=== PATIENT | female | born 1995 | race Two or more races ===

== ENCOUNTER 2024-09-29 08:15 | Outpatient (AMB) | payer OTHER, SELFPAY ==
--- NOTE | 2024-09-29 08:15 | AMB.OBINITIA ---
Vital Signs 09/29/24 08:25 Height 1.57 m Height Method Stated Weight 102.625 kg Weight Measurement Method Standing Scale BMI 41.3 BP 110/73 Blood Pressure Source Automatic Cuff Blood Pressure Location Left Upper Arm Position Sitting Respiration 16 Pulse 98 Pulse Source Monitor Temp 97.8 F Temp Source Oral Pulse Oximetry (%) 96 Oxygen Delivery Method Room Air Allergies/Home Meds Allergies & Medications Allergies NKA* Allergy (Uncoded 09/29/24 08:27) Medication Reconciliation doxylamine 10 mg-pyridoxine (vit B6) 10 mg tablet,delayed release (Diclegis) 1 tab PO BID 30 days #60 tabs 09/29/24 [Rx] folic acid 1 mg tablet 1 mg PO QDAY 09/29/24 [History Confirmed 09/29/24] metformin 1,000 mg tablet 1,000 mg PO QDAY 09/29/24 [History Confirmed 09/29/24] ondansetron 4 mg disintegrating tablet 4 mg PO Q6H PRN nausea and vomiting 30 days #120 tabs 09/29/24 [Rx] Intake Visit Data Collection New Patient or Established: New Patient not seen in past 3 years at [facility] (considered New) Reason for Visit:: CARE Seen by Clinical Staff ONLY (RN/MA): No Data Processor Required: No Do You Feel Safe at Home: Yes Authorities Contacted: N/A PCP or OBGYN visit in last 3 months: No Hx Now: Yes Are you currently on any form of Control: Yes Last menstrual period: 08/05/24 Pain Present Currently: No Pain Scale Used: Adams-Galvin/Numerical Pain scale:: 0 Smoking Status Smoking Status: Never smoker Questionnaires Covid-19 Vaccine Questionnaire Has patient been vacinated for Covid-19 Have you been vacinated for Covid-19: Yes PHQ-9 PHQ-2 Over the last 2 weeks, how often have you been bothered by any of the following problems? 1. Little interest or pleasure in doing things: not at all 2. Feeling down, depressed, or hopeless: not at all Total score: 0 PHQ-9 3. Trouble falling or staying asleep, or sleeping too much: Not at all 4. Feeling tired or having little energy: Not at all 5. Poor appetite or overeating: Not at all 6. Feeling bad about yourself - or that you are a failure or have let yourself or your family down: Not at all 7. Trouble concentrating on things, such as reading the newspaper or watching television: Not at all 8. Moving or speaking so slowly that other people could have noticed? - Or the opposite - being so fidgety or restless that you have been moving around a lot more than usual: not at all 9. Thoughts that you would be better off or of hurting yourself in some way: Not at all Total score: 0 Source: Developed by Drs. Efrain Guerrero, Yoko Roque, Sunil Ibrahim and colleagues, with an educational carrie from [employer]. Depression screen completed yes Social History Living Situation History Marital Status: Lives With: Family Housing: House Tobacco History Smoking Status: Never smoker Second Hand Smoke Exposure: No Alcohol History Alcohol Intake: Never Substance Use History Substance Use: NONE Domestic Abuse History Do You Feel Safe at Home: Yes Past Medical History Past Medical History Have you ever been diagnosed with any of the following: Neurological Problems Cerebrovascular Accident (CVA): No Transient Ischemic Attacks (TIA): No Dementia: No Alzheimer's Disease: No Parkinson's Disease: No Brain Tumor: No Meningitis: No Seizures: No Epilepsy: No Multiple Sclerosis: No Cerebral Palsy: No Amyotrophic Lateral Sclerosis (ALS/Francy Gehrig's): No Guillain-[place] Syndrome: No Spina Bifida: No Paralysis: No Peripheral Neuropathy: No Banks's Palsy: No Subdural Hematoma: No Migraine: No Head Trauma: No Spinal Cord Injury: No Traumatic Brain Injury: No Cardiology Problems Myocardial Infarction: No Cardiac Arrhythmia: No Atrial Fibrillation: No Angina: No Heart Murmur: No Coronary Artery Disease: No Atherosclerotic Heart Disease: No Peripheral Vascular Disease: No Hypercholesterolemia: No Aneurysm: No Congestive Heart Failure: No Congenital Heart Disease: No Valvular Heart Disease: No Rheumatic Fever: No Cardiomyopathy: No Edema: No Pericarditis: No Hypertension: Yes (FATHER) Hypotension: No Respiratory Problems Chronic Obstructive Pulmonary Disease (COPD): No Asthma: No Bronchitis: No Emphysema: No Pneumonia: No Pulmonary Fibrosis: No Tuberculosis: No Pulmonary Embolism: No Pulmonary Edema: No Hx Cough: No Cough: No Wheezing: No Chest Deformities: No Smoking: No Smoking Exposure: No Tobacco Use: No Stomache/Intestinal Problems Liver Cancer: No Hepatitis: No Cirrhosis: No Pancreatic Cancer: No Genital/Urinary Problems Chronic Kidney Disease: No Renal Disease: No Kidney Stones: No Polycystic Kidney Disease: No Neurogenic Bladder: No Inguinal Hernia: No Dialysis: No Prostate Cancer: No Benign Prostatic Hyperplasia: No Reproductive Problems Breast Cancer: No Endometriosis: No Fibroids: No Genital Herpes: No Gonorrhea: No Pelvic Inflammatory Disease: No Polycystic Ovarian Syndrome: No Previous Pregnancies: No Syphilis: No Testicular Cancer: No Uterine Prolapse: No Musculoskeletal Problems Muscular Dystrophy: No Myasthenia Gravis: No Marfan's Syndrome: No Bone Cancer: No Arthritis: No Rheumatoid Arthritis: No Osteoporosis: No Degenerative Disk Disease: No Gout: No Scoliosis: No Carpal Tunnel Syndrome: No Fibromyalgia: No Fractures: No Degenerative Joint Disease: No Osteomyelitis: No Poliovirus: No Head,Eye,Nose,Throat Problems Cataracts: No Glaucoma: No Blind: No Retinal Detachment: No Macular Degeneration: No Chronic Ear Infections: No Deafness: No Eye Prosthesis: No Endocrine Problems Diabetes Mellitus Type 1: No Diabetes Mellitus Type 2: Yes Hypoglycemia: No Isabel's Syndrome: No Dorchester's Disease: No Hyperthyroidism: No Hypothyroidism: No Thyroid Cancer: No Parathyroid Disease: No Pituitary Disease: No Systemic Lupus Erythematosus: No Syndrome of Inappropriate Antidiuretic Hormone: No Adrenal Disease: No Graves' Disease: No Blood Problems Anemia: No Leukemia: No Hemophilia: No Thalassemia: No Sickle Cell Disease: No Clotting Problems: No Psychologic Problems Schizophrenia: No Recreational Drug Use: No Bipolar Disorder: No Depression: No Anxiety: Yes Behavior Problems: No Self-Mutilation: No Attention Deficit Disorder: No Attention Deficit Hyperactivity Disorder: No Depression: No Post Traumatic Stress Disorder: No Eating Disorder: No Other Problems Hospitalization: No Autoimmune Disease: No Down Syndrome: No Autism: No Developmental Delay: No Cosmetic Surgery: No Shingles: No Falls: No Blood Transfusions: No Blood Transfusion Reaction: No Anesthesia Reactions: No Organ Transplant: No Chemotherapy: No Radiation Therapy: No Hyperbaric Therapy: No Cancer: Yes (FATHER/ STOMACH CANCER) Cervical Cancer: No Lung Cancer: No Ovarian Cancer: No Surgical History Angioplasty: No Appendectomy: No Bariatric Surgery: No Breast Surgery: No Cancer Surgery: No Carotid Endarterectomy: No History of Present Illness HPI Narrative The patient is a at 7 weeks and 6 days gestation based on LMP of August 05, with an ARIN of May 12. She reports experiencing nausea and vomiting, with emesis occurring multiple times daily for the past 3 days. The patient was previously prescribed Clomid and folic acid at [facility]. She took her first round of Clomid in July, which resulted in successful conception. The patient is currently continuing folic acid supplementation. OB Initial Visit Menstrual History Menstrual reliability: definite Flow: normal Menstrual regularity: regular Monthly: Yes Age at menarche: 13 On control pills at conception: No Date of positive home test: 09/09/24 OB History : 1 Para: 0 Hx # Pregnancies: 0 Hx Total # of Abortions (Spontaneous & Elective): 0 # of Living Children: 0 Infection History & Risk Evaluation History of STDs: none Genetic Screening & History Genetic Screening/Teratology Counseling - Includes patient, baby's father, or anyone in either family with: 1. Patient's age 35 years or older as of estimated date of delivery: No 2. Thalassemia (Occitan, Tamazight, Mediterranean, or Background); MCV less than 80: No 3. Neural Tube Defect (Meningomyelocele, Spina Bifida, or Anencephaly): No 4. Congenital Heart Defect: No 5. Down Syndrome: No 6. Serge-Sachs (Ashkenazi Anabaptist, Cajun, Portuguese [place]): No 7. Clifton Disease (Ashkenazi Anabaptist): No 8. Familial Dysautonomia (Ashkenazi Anabaptist): No 9. Sickle Cell Disease or Trait (): No 10. Hemophilia or other blood disorders: No 11. Muscular Dystrophy: No 12. Cystic Fibrosis: No 13. Gillett's Chorea: No 14. Mental Retardation/Autism: No 15. Other inherited genetic or chromosomal disorder: No 16. Maternal Metabolic Disorder (EG,TYPE 1 Diabetes, PKU): No 17. Patient or baby's father had a child with defects not listed above: No 18. Recurrent loss or a stillbirth: No 19. Medications (including supplements, vitamins, herbs or otc drugs)/illicit/recreational drugs/alcohol since last menstrual period: No 20. Any other: No Infection History 1. Live with someone with TB or exposed to TB: No 2. Rash or viral illness since last menstrual period: No 3. Hepatitis B,C: No Other (see comments) Source: [employer] Review of Systems Review of Systems Systems Reviewed: All systems reviewed, normal except as documented Exam General Limitations: no limitations General Appearance: alert, in no apparent distress, comfortable, cooperative, healthy appearing, well developed and well groomed Head Head exam: atraumatic, normocephalic and normal inspection Neck Neck exam: Present normal inspection, full ROM and trachea midline Chest Chest inspection: Present normal inspection and symmetric chest wall rise Abdominal Abdominal exam: Present soft and normal bowel sounds Extremities Extremities exam: Present normal inspection and full ROM Back Back exam: Present normal inspection and full ROM Psych Psychiatric exam: Present normal affect and normal mood Skin Skin exam: Present warm, dry, intact and normal color Assessment & Plan Diagnosis / Problem List (1) with history of infertility: Status: Acute Plan: Patient is a 7 weeks 6 days primigravida based on LMP of August 05, with ARIN of May 12. Ultrasound revealed one definite intrauterine gestational sac with visible heartbeat. A second potential sac was noted, requiring further evaluation to confirm possible twin gestation. Patient reports nausea and vomiting multiple times daily for the past 3 days. resulted from first round of Clomid treatment in July. - Formal ultrasound to be performed today to confirm potential twin gestation - Complete initial lab panel and genetic testing on or after October 07 (9 weeks gestation) - Prescribe antiemetics for nausea and vomiting: - Start with high-dose vitamins - Zofran (ondansetron) - Escalate to stronger medications if needed - Continue folic acid supplementation until 15 weeks gestation - Follow-up appointment scheduled for next week to review lab and ultrasound results - Clinician to call patient this afternoon with ultrasound results (2) Twin gestation in first trimester: Status: Acute Additional Plan Follow Up: 1 Week Office Procedures OB Clinic LOC & Office Proc's Nursing/Assessment Patient Status: Initial/New Patient OB Clinic Nursing Assessment: Medication Reconciliation, Update PMH in EMR and Vital Signs OB Clinic Coordination of Care: Complex Care and Chronic Disease 1-5, Consent,records obtained, informed consent, Education Simp Pt/Fam, Lab and Imaging orders and Staff clarify orders Special Needs: Heart tones New Patient Charge New Patient Point Assignment: [id number] New Patient Point Charge: CUTTING TABLE OPERATOR Level 4 ([id number]) Bedside Ultrasounds US Transabdominal >14 weeks at bedside: Yes
[2024-09-29 08:25] VITALS: BP 110/73; PULSE 98; RESP 16; TEMP 36.6; O2SAT 96; BMI 41.3
== END 2024-09-29 08:55 | disposition home or self-care (01) ==
LOC: HODSOBC 08:15
PROVIDERS: PCP Physician Assistant; Referring Provider Physician Assistant; Supervising Provider Obstetrics & Gynecology; Visit Provider Obstetrics & Gynecology
DX: O30.001 Twin pregnancy, unspecified number of placenta and unspecified number of amniotic sacs, first trimester (principal); Z3A.01 Less than 8 weeks gestation of pregnancy; O09.00 Supervision of pregnancy with history of infertility, unspecified trimester
CPT/HCPCS: 76805; 99204; G0463

== ENCOUNTER → 2024-09-29 | Outpatient (CLI) | payer OTHER, SELFPAY ==
--- NOTE | 2024-09-29 10:24 | XR_ITS ---
Examination: age Limited TECHNIQUE: Grayscale sonographic images pelvis, INDICATIONS: diagnosis twin gestations assess viability Exam date and time: September 29, 2024 1035 hours FINDINGS: Uterus 7.3 cm. Baby A CRL 0.8 cm corresponds to 6 weeks 5 day gestational age, cardiac motion 152 BPM Baby B CRL 0.8 cm corresponds to 6 weeks 6 days gestational age, cardiac motion 141 BPM Right ovary 2.8 cm arterial flow small follicles Left ovary 3.3 cm arterial flow small follicles IMPRESSION: Viable twin gestations as above
== END | disposition home or self-care (01) ==
PROVIDERS: PCP Obstetrics & Gynecology; Referring Provider Obstetrics & Gynecology; Visit Provider Obstetrics & Gynecology
DX: O30.001 Twin pregnancy, unspecified number of placenta and unspecified number of amniotic sacs, first trimester (principal); Z3A.01 Less than 8 weeks gestation of pregnancy
CPT/HCPCS: 76801; 76802

== ENCOUNTER 2024-10-09 09:44 | Outpatient (AMB) | payer OTHER, SELFPAY ==
[2024-10-09 09:57] VITALS: BP 107/71; PULSE 100; RESP 18; TEMP 36.7; O2SAT 96; BMI 41.6
--- NOTE | 2024-10-09 09:57 | AMB.OBVISIT ---
Vital Signs 10/09/24 09:57 Height 1.57 m Height Method Stated Weight 102.682 kg Weight Measurement Method Standing Scale BMI 41.6 BP 107/71 Blood Pressure Source Automatic Cuff Blood Pressure Location Left Upper Arm Position Sitting Respiration 18 Pulse 100 Pulse Source Monitor Temp 98.1 F Temp Source Oral Pulse Oximetry (%) 96 Oxygen Delivery Method Room Air Allergies/Home Meds Allergies & Medications Allergies NKA* Allergy (Uncoded 10/09/24 09:58) Medication Reconciliation doxylamine 10 mg-pyridoxine (vit B6) 10 mg tablet,delayed release (Diclegis) 1 tab PO BID 30 days #60 tabs 09/29/24 [Rx Confirmed 10/09/24] folic acid 1 mg tablet 1 mg PO QDAY 09/29/24 [History Confirmed 10/09/24] metformin 1,000 mg tablet 1,000 mg PO QDAY 09/29/24 [History Confirmed 10/09/24] ondansetron 4 mg disintegrating tablet 4 mg PO Q6H PRN nausea and vomiting 30 days #120 tabs 09/29/24 [Rx Confirmed 10/09/24] Intake Visit Data Collection New Patient or Established: Established Patient (seen at [facility] within 3 years) Reason for Visit:: CARE Seen by Clinical Staff ONLY (RN/MA): No Nutrition Associate Required: No Do You Feel Safe at Home: Yes Authorities Contacted: N/A PCP or OBGYN visit in last 3 months: Yes Date of Last PCP or OBGYN visit: 09/29/24 Hx Now: Yes Are you currently on any form of Control: No Last menstrual period: 08/15/24 Pain Present Currently: No Pain Scale Used: Adams-Galvin/Numerical Pain scale:: 0 Smoking Status Smoking Status: Never smoker Questionnaires Covid-19 Vaccine Questionnaire Has patient been vacinated for Covid-19 Have you been vacinated for Covid-19: Yes PHQ-9 PHQ-2 Over the last 2 weeks, how often have you been bothered by any of the following problems? 1. Little interest or pleasure in doing things: not at all 2. Feeling down, depressed, or hopeless: not at all Total score: 0 PHQ-9 3. Trouble falling or staying asleep, or sleeping too much: Not at all 4. Feeling tired or having little energy: Not at all 5. Poor appetite or overeating: Not at all 6. Feeling bad about yourself - or that you are a failure or have let yourself or your family down: Not at all 7. Trouble concentrating on things, such as reading the newspaper or watching television: Not at all 8. Moving or speaking so slowly that other people could have noticed? - Or the opposite - being so fidgety or restless that you have been moving around a lot more than usual: not at all 9. Thoughts that you would be better off or of hurting yourself in some way: Not at all Total score: 0 Source: Developed by Drs. Efrain Guerrero, Yoko Roque, Sunil Ibrahim and colleagues, with an educational carrie from [employer]. Depression screen completed yes Social History Living Situation History Marital Status: Lives With: Family Housing: House Tobacco History Smoking Status: Never smoker Second Hand Smoke Exposure: No Alcohol History Alcohol Intake: Never Substance Use History Substance Use: NONE Domestic Abuse History Do You Feel Safe at Home: Yes Past Medical History Past Medical History Have you ever been diagnosed with any of the following: Neurological Problems Cerebrovascular Accident (CVA): No Transient Ischemic Attacks (TIA): No Dementia: No Alzheimer's Disease: No Parkinson's Disease: No Brain Tumor: No Meningitis: No Seizures: No Epilepsy: No Multiple Sclerosis: No Cerebral Palsy: No Amyotrophic Lateral Sclerosis (ALS/Francy Gehrig's): No Guillain-[place] Syndrome: No Spina Bifida: No Paralysis: No Peripheral Neuropathy: No Banks's Palsy: No Subdural Hematoma: No Migraine: No Head Trauma: No Spinal Cord Injury: No Traumatic Brain Injury: No Cardiology Problems Myocardial Infarction: No Cardiac Arrhythmia: No Atrial Fibrillation: No Angina: No Heart Murmur: No Coronary Artery Disease: No Atherosclerotic Heart Disease: No Peripheral Vascular Disease: No Hypercholesterolemia: No Aneurysm: No Congestive Heart Failure: No Congenital Heart Disease: No Valvular Heart Disease: No Rheumatic Fever: No Cardiomyopathy: No Edema: No Pericarditis: No Hypertension: Yes (FATHER) Hypotension: No Respiratory Problems Chronic Obstructive Pulmonary Disease (COPD): No Asthma: No Bronchitis: No Emphysema: No Pneumonia: No Pulmonary Fibrosis: No Tuberculosis: No Pulmonary Embolism: No Pulmonary Edema: No Hx Cough: No Cough: No Wheezing: No Chest Deformities: No Smoking: No Smoking Exposure: No Tobacco Use: No Stomache/Intestinal Problems Liver Cancer: No Hepatitis: No Cirrhosis: No Pancreatic Cancer: No Genital/Urinary Problems Renal Disease: No Kidney Stones: No Polycystic Kidney Disease: No Neurogenic Bladder: No Inguinal Hernia: No Dialysis: No Prostate Cancer: No Benign Prostatic Hyperplasia: No Reproductive Problems Breast Cancer: No Endometriosis: No Fibroids: No Genital Herpes: No Gonorrhea: No Pelvic Inflammatory Disease: No Polycystic Ovarian Syndrome: No Previous Pregnancies: No Syphilis: No Testicular Cancer: No Uterine Prolapse: No Musculoskeletal Problems Muscular Dystrophy: No Myasthenia Gravis: No Marfan's Syndrome: No Bone Cancer: No Arthritis: No Rheumatoid Arthritis: No Osteoporosis: No Degenerative Disk Disease: No Gout: No Scoliosis: No Carpal Tunnel Syndrome: No Fibromyalgia: No Fractures: No Degenerative Joint Disease: No Osteomyelitis: No Poliovirus: No Head,Eye,Nose,Throat Problems Cataracts: No Glaucoma: No Blind: No Retinal Detachment: No Macular Degeneration: No Chronic Ear Infections: No Deafness: No Eye Prosthesis: No Endocrine Problems Diabetes Mellitus Type 1: No Diabetes Mellitus Type 2: Yes Hypoglycemia: No Carville's Syndrome: No Jonel's Disease: No Hyperthyroidism: No Hypothyroidism: No Thyroid Cancer: No Parathyroid Disease: No Pituitary Disease: No Systemic Lupus Erythematosus: No Syndrome of Inappropriate Antidiuretic Hormone: No Adrenal Disease: No Graves' Disease: No Blood Problems Anemia: No Leukemia: No Hemophilia: No Thalassemia: No Sickle Cell Disease: No Clotting Problems: No Psychologic Problems Schizophrenia: No Recreational Drug Use: No Bipolar Disorder: No Depression: No Anxiety: Yes Behavior Problems: No Self-Mutilation: No Attention Deficit Disorder: No Attention Deficit Hyperactivity Disorder: No Depression: No Post Traumatic Stress Disorder: No Eating Disorder: No Other Problems Hospitalization: No Down Syndrome: No Autism: No Developmental Delay: No Cosmetic Surgery: No Shingles: No Falls: No Blood Transfusions: No Blood Transfusion Reaction: No Anesthesia Reactions: No Organ Transplant: No Chemotherapy: No Radiation Therapy: No Hyperbaric Therapy: No Hepatitis A: No Hepatitis B: No Hepatitis C: No Communicable Disease: No Cancer: Yes (FATHER/ STOMACH CANCER) Cervical Cancer: No Lung Cancer: No Ovarian Cancer: No Surgical History Angioplasty: No Appendectomy: No Bariatric Surgery: No Breast Surgery: No Cancer Surgery: No Carotid Endarterectomy: No Cholecystectomy: No Colectomy: No Colostomy: No Coronary Artery Bypass Graft: No Valve Replacement: No Herniorrhaphy: No Total Hip Replacement: No Total Knee Replacement: No Hysterectomy: No Pacemaker: No Sinus Surgery: No Splenectomy: No TAHBSO-Total Abdominal Hysterectomy: No Thyroidectomy: No Ureter Stent: No History of Present Illness HPI Narrative Patient is with twins. An ultrasound performed on 09-29 at 6 weeks and 5 days gestation confirmed the presence of two gestational sacs. The ultrasound showed good heartbeats and measurements for both fetuses. One fetus measured at 6 weeks 5 days, while the other measured at 6 weeks 6 days. The patient is currently 8 weeks and 1 day gestation, with an estimated due date of May 20. The type of twins (identical or fraternal) has not yet been determined. Review of Systems Review of Systems Systems Reviewed: All systems reviewed, normal except as documented Visit ARIN Calculator Estimated Delivery Date Method Current WG Current Estimate 05/12/25 LMP (Certain) 10w 0d Exam General Limitations: no limitations General Appearance: alert, in no apparent distress, comfortable, cooperative, healthy appearing, well developed and well groomed Head Head exam: atraumatic, normocephalic and normal inspection Neck Neck exam: Present normal inspection, full ROM and trachea midline Chest Chest inspection: Present normal inspection and symmetric chest wall rise Abdominal Abdominal exam: Present soft and normal bowel sounds Extremities Extremities exam: Present normal inspection and full ROM Back Back exam: Present normal inspection and full ROM Psych Psychiatric exam: Present normal affect and normal mood Skin Skin exam: Present warm, dry, intact and normal color Assessment & Plan Diagnosis / Problem List (1) Twin gestation in first trimester: Status: Acute Plan: Twin Patient is confirmed to have a twin . Ultrasound on 09-29 showed two gestational sacs with fetuses measuring 6 weeks 5 days and 6 weeks 6 days, respectively. Both fetuses had good heartbeats and measurements. Current gestational age is 8 weeks 1 day based on the ultrasound dating. The type of twins (identical vs fraternal) cannot be determined until approximately 12 weeks gestation. Due date is calculated as May 20. - Schedule 12-14 week ultrasound with Maternal- Medicine (MFM) specialist in [place] - Obtain authorization for MFM referral - Perform Non-Invasive Testing (NIPT) at 9 weeks gestation or later - Complete initial panel lab work - Provide patient with copies of ultrasound images - Follow-up with MFM for 20-week ultrasound (2) with history of infertility: Status: Acute Office Procedures OB Clinic LOC & Office Proc's Nursing/Assessment Patient Status: Established Patient OB Clinic Nursing Assessment: Medication Reconciliation, Update PMH in EMR and Vital Signs OB Clinic Coordination of Care: Complex Care and Chronic Disease 1-5, Consent,records obtained, informed consent, Education Simp Pt/Fam, Lab and Imaging orders, Results/Orders obtained and Staff clarify orders Special Needs: Heart tones Established Patient Charge Established Patient Point Assignment: 135 Established Patient Point Charge: EP Level 4 ([id number])
== END 2024-10-09 10:13 | disposition home or self-care (01) ==
LOC: HODSOBC 09:44
PROVIDERS: PCP Obstetrics & Gynecology; Referring Provider Obstetrics & Gynecology; Supervising Provider Obstetrics & Gynecology; Visit Provider Obstetrics & Gynecology
DX: O30.001 Twin pregnancy, unspecified number of placenta and unspecified number of amniotic sacs, first trimester (principal); O09.00 Supervision of pregnancy with history of infertility, unspecified trimester; Z3A.08 8 weeks gestation of pregnancy
CPT/HCPCS: 99214; G0463

== ENCOUNTER 2024-10-27 08:39 | Outpatient (AMB) | payer OTHER, SELFPAY ==
--- NOTE | 2024-10-27 08:53 | AMB.GYNCLNOT ---
Vital Signs 10/27/24 08:54 Height 1.57 m Height Method Stated Weight 102.739 kg Weight Measurement Method Standing Scale BMI 41.6 BP 119/75 Blood Pressure Source Automatic Cuff Blood Pressure Location Right Lower Arm Position Sitting Respiration 18 Pulse 99 Pulse Source Monitor Temp 97.9 F Temp Source Oral Pulse Oximetry (%) 97 Oxygen Delivery Method Room Air Allergies/Home Meds Allergies & Medications Allergies NKA* Allergy (Uncoded 10/27/24 08:55) Medication Reconciliation doxylamine 10 mg-pyridoxine (vit B6) 10 mg tablet,delayed release (Diclegis) 1 tab PO BID 30 days #60 tabs 09/29/24 [Rx Confirmed 10/27/24] folic acid 1 mg tablet 1 mg PO QDAY 09/29/24 [History Confirmed 10/27/24] metformin 1,000 mg tablet 1,000 mg PO QDAY 09/29/24 [History Confirmed 10/27/24] ondansetron 4 mg disintegrating tablet 4 mg PO Q6H PRN nausea and vomiting 30 days #120 tabs 09/29/24 [Rx Confirmed 10/27/24] Intake Visit Data Collection New Patient or Established: Established Patient (seen at [facility] within 3 years) Reason for Visit:: EMERGENCY ROOM FOLLOW UP Seen by Clinical Staff ONLY (RN/MA): No Cooling Room Attendant Required: No Do You Feel Safe at Home: Yes Authorities Contacted: N/A PCP or OBGYN visit in last 3 months: Yes Date of Last PCP or OBGYN visit: 10/09/24 Hx Now: Yes Are you currently on any form of Control: Yes Pain Present Currently: No Pain Scale Used: Adams-Galvin/Numerical Pain scale:: 0 Smoking Status 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 1. Little interest or pleasure in doing things: not at all 2. Feeling down, depressed, or hopeless: not at all Total score: 0 PHQ-9 3. Trouble falling or staying asleep, or sleeping too much: Not at all 4. Feeling tired or having little energy: Not at all 5. Poor appetite or overeating: Not at all 6. Feeling bad about yourself - or that you are a failure or have let yourself or your family down: Not at all 7. Trouble concentrating on things, such as reading the newspaper or watching television: Not at all 8. Moving or speaking so slowly that other people could have noticed? - Or the opposite - being so fidgety or restless that you have been moving around a lot more than usual: not at all 9. Thoughts that you would be better off or of hurting yourself in some way: Not at all Total score: 0 Source: Developed by Drs. Efrain Guerrero, Yoko Roque, Sunil Ibrahim and colleagues, with an educational carrie from [employer]. Depression screen completed yes Social History Living Situation History Lives With: Family Housing: House Tobacco History Smoking Status: Never smoker Second Hand Smoke Exposure: No Alcohol History Alcohol Intake: Never Substance Use History Substance Use: NONE Domestic Abuse History Do You Feel Safe at Home: Yes Past Medical History Past Medical History Have you ever been diagnosed with any of the following: Neurological Problems Cerebrovascular Accident (CVA): No Transient Ischemic Attacks (TIA): No Dementia: No Alzheimer's Disease: No Parkinson's Disease: No Brain Tumor: No Meningitis: No Seizures: No Epilepsy: No Multiple Sclerosis: No Cerebral Palsy: No Amyotrophic Lateral Sclerosis (ALS/Francy Gehrig's): No Guillain-Livingston Syndrome: No Spina Bifida: No Paralysis: No Peripheral Neuropathy: No Banks's Palsy: No Subdural Hematoma: No Migraine: No Head Trauma: No Spinal Cord Injury: No Traumatic Brain Injury: No Cardiology Problems Myocardial Infarction: No Cardiac Arrhythmia: No Atrial Fibrillation: No Angina: No Heart Murmur: No Coronary Artery Disease: No Atherosclerotic Heart Disease: No Peripheral Vascular Disease: No Hypercholesterolemia: No Aneurysm: No Congestive Heart Failure: No Congenital Heart Disease: No Valvular Heart Disease: No Rheumatic Fever: No Cardiomyopathy: No Edema: No Pericarditis: No Hypertension: Yes (FATHER) Hypotension: No Respiratory Problems Chronic Obstructive Pulmonary Disease (COPD): No Asthma: No Bronchitis: No Emphysema: No Pneumonia: No Pulmonary Fibrosis: No Tuberculosis: No Pulmonary Embolism: No Pulmonary Edema: No Hx Cough: No Cough: No Wheezing: No Chest Deformities: No Smoking: No Smoking Exposure: No Tobacco Use: No Stomache/Intestinal Problems Liver Cancer: No Hepatitis: No Cirrhosis: No Pancreatic Cancer: No Genital/Urinary Problems Renal Disease: No Kidney Stones: No Polycystic Kidney Disease: No Neurogenic Bladder: No Inguinal Hernia: No Dialysis: No Reproductive Problems Breast Cancer: No Endometriosis: No Fibroids: No Genital Herpes: No Gonorrhea: No Pelvic Inflammatory Disease: No Polycystic Ovarian Syndrome: No Previous Pregnancies: No Syphilis: No Uterine Prolapse: No Musculoskeletal Problems Muscular Dystrophy: No Myasthenia Gravis: No Marfan's Syndrome: No Bone Cancer: No Arthritis: No Rheumatoid Arthritis: No Osteoporosis: No Degenerative Disk Disease: No Gout: No Scoliosis: No Carpal Tunnel Syndrome: No Fibromyalgia: No Fractures: No Degenerative Joint Disease: No Osteomyelitis: No Poliovirus: No Head,Eye,Nose,Throat Problems Cataracts: No Glaucoma: No Blind: No Retinal Detachment: No Macular Degeneration: No Chronic Ear Infections: No Deafness: No Eye Prosthesis: No Endocrine Problems Diabetes Mellitus Type 1: No Diabetes Mellitus Type 2: Yes Hypoglycemia: No [place]'s Syndrome: No Edwards's Disease: No Hyperthyroidism: No Hypothyroidism: No Thyroid Cancer: No Parathyroid Disease: No Pituitary Disease: No Systemic Lupus Erythematosus: No Syndrome of Inappropriate Antidiuretic Hormone: No Adrenal Disease: No Graves' Disease: No Blood Problems Anemia: No Leukemia: No Hemophilia: No Thalassemia: No Sickle Cell Disease: No Clotting Problems: No Psychologic Problems Schizophrenia: No Recreational Drug Use: No Bipolar Disorder: No Depression: No Anxiety: Yes Behavior Problems: No Self-Mutilation: No Attention Deficit Disorder: No Attention Deficit Hyperactivity Disorder: No Depression: No Post Traumatic Stress Disorder: No Eating Disorder: No Other Problems Hospitalization: No Down Syndrome: No Autism: No Developmental Delay: No Cosmetic Surgery: No Shingles: No Falls: No Blood Transfusions: No Blood Transfusion Reaction: No Anesthesia Reactions: No Organ Transplant: No Chemotherapy: No Radiation Therapy: No Hyperbaric Therapy: No Hepatitis A: No Hepatitis B: No Hepatitis C: No Communicable Disease: No Cancer: Yes (FATHER/ STOMACH CANCER) Cervical Cancer: No Lung Cancer: No Ovarian Cancer: No Surgical History Angioplasty: No Appendectomy: No Bariatric Surgery: No Breast Surgery: No Cancer Surgery: No Carotid Endarterectomy: No Cholecystectomy: No Colectomy: No Colostomy: No Coronary Artery Bypass Graft: No Valve Replacement: No Herniorrhaphy: No Total Hip Replacement: No Total Knee Replacement: No Hysterectomy: No Pacemaker: No Sinus Surgery: No Splenectomy: No TAHBSO-Total Abdominal Hysterectomy: No Thyroidectomy: No Ureter Stent: No History of Present Illness HPI Narrative patient with twins presents for follow-up after an emergency room visit due to vaginal bleeding. Last , she experienced bright red vaginal bleeding that was constant but not heavy. She went to the ER where tests, including an ultrasound, blood tests, and urine analysis, were performed. The ultrasound showed a heart rate of 174 bpm. The bleeding continued on Sunday but changed to brown in color, with two episodes of blood clots. On Sunday, she had one instance of brown bleeding, after which the bleeding stopped. The patient denies any precipitating factors such as strenuous exercise, heavy lifting, or excessive fatigue. She reports vomiting once yesterday. The patient is currently taking vitamins as prescribed. She has an upcoming appointment with a specialist at [facility] next Sunday for a detailed ultrasound. She has been advised to follow precautions for two weeks from the onset of bleeding, including pelvic rest (no sexual intercourse), avoiding lifting more than 20 pounds, limiting car travel to no more than an hour, and avoiding activities such as extensive stair climbing, hiking, or picnics. The patient reports having to go to work after the appointment. Diagnostic Test Results and Labs: - ER visit (last ): - Ultrasound: heart rate 174 bpm - Blood tests: Performed, results not specified - Urine test: Performed, results not specified - Today (SunOct 27 2024): - Ultrasound: - Twin confirmed - Baby A heart rate: 175 bpm - Baby B heart rate: 170 bpm - No visible blood clots - Placenta: No visible abnormalities - Possible resolving subchorionic hemorrhage noted Review of Systems Review of Systems Systems Reviewed: All systems reviewed, normal except as documented Exam General Limitations: no limitations General Appearance: alert, in no apparent distress, comfortable, cooperative, healthy appearing, well developed and well groomed Head Head exam: atraumatic, normocephalic and normal inspection Chest Chest inspection: Present normal inspection and symmetric chest wall rise Abdominal Abdominal exam: Present soft and normal bowel sounds Psych Psychiatric exam: Present normal affect and normal mood Skin Skin exam: Present warm, dry, intact and normal color Assessment & Plan Diagnosis / Problem List (1) Twin gestation in first trimester: Status: Acute (2) with history of infertility: Status: Acute Plan - Pelvic rest for 2 weeks from the bleeding episode. - Avoid lifting more than 20 pounds. - Limit car travel to less than 1 hour at a time. - Avoid prolonged crouching, climbing stairs, hiking, and picnics for 2 weeks. - Continue vitamins. - Attend scheduled appointment with [facility] specialist next Sunday for detailed ultrasound. - Follow up on results of previously ordered genetic testing. Office Procedures OB Clinic LOC & Office Proc's Nursing/Assessment Patient Status: Established Patient OB Clinic Nursing Assessment: Medication Reconciliation, Update PMH in EMR and Vital Signs OB Clinic Coordination of Care: Complex Care and Chronic Disease 1-5, Consent,records obtained, informed consent, Education Simp Pt/Fam, Lab and Imaging orders, Results/Orders obtained and Staff clarify orders Established Patient Charge Established Patient Point Assignment: 105 Established Patient Point Charge: EP Level 3 (80-115)
[2024-10-27 08:54] VITALS: BP 119/75; PULSE 99; RESP 18; TEMP 36.6; O2SAT 97; BMI 41.6
== END 2024-10-27 09:31 | disposition home or self-care (01) ==
LOC: HODSOBC 08:39
PROVIDERS: Supervising Provider Obstetrics & Gynecology; Visit Provider Obstetrics & Gynecology
DX: O09.00 Supervision of pregnancy with history of infertility, unspecified trimester (principal); Z3A.00 Weeks of gestation of pregnancy not specified; O30.009 Twin pregnancy, unspecified number of placenta and unspecified number of amniotic sacs, unspecified trimester
CPT/HCPCS: 99213; G0463

== ENCOUNTER 2024-11-19 11:17 | Outpatient (AMB) | payer OTHER, SELFPAY ==
--- NOTE | 2024-11-19 11:34 | OBCLNT_ITS ---
Vital Signs 11/19/24 11:41 Height 1.57 m Height Method Stated Weight 104.893 kg Weight Measurement Method Standing Scale BMI 42.5 BP 125/83 Blood Pressure Source Automatic Cuff Blood Pressure Location Left Upper Arm Position Sitting Respiration 20 Pulse 109 H Pulse Source Monitor Temp 98 F Temp Source Oral Pulse Oximetry (%) 96 Oxygen Delivery Method Room Air Allergies/Home Meds Allergies & Medications Allergies NKA* Allergy (Uncoded 11/19/24 11:42) Medication Reconciliation doxylamine 10 mg-pyridoxine (vit B6) 10 mg tablet,delayed release (Diclegis) 1 tab PO BID 30 days #60 tabs 09/29/24 [Rx Confirmed 11/19/24] folic acid 1 mg tablet 1 mg PO QDAY 09/29/24 [History Confirmed 11/19/24] metformin 1,000 mg tablet 1,000 mg PO QDAY 09/29/24 [History Confirmed 11/19/24] ondansetron 4 mg disintegrating tablet 4 mg PO Q6H PRN nausea and vomiting 30 days #120 tabs 09/29/24 [Rx Confirmed 11/19/24] Intake Visit Data Collection New Patient or Established: Established Patient (seen at [facility] within 3 years) Reason for Visit:: CARE Seen by Clinical Staff ONLY (RN/MA): No Senior Information Security Analyst Required: No Do You Feel Safe at Home: Yes Authorities Contacted: N/A PCP or OBGYN visit in last 3 months: Yes Hx Now: Yes Are you currently on any form of Control: No Pain Present Currently: No Pain Scale Used: Adams-Galvin/Numerical Pain scale:: 0 Smoking Status Smoking Status: Never smoker Questionnaires Covid-19 Vaccine Questionnaire Has patient been vacinated for Covid-19 Have you been vacinated for Covid-19: Yes PHQ-9 PHQ-2 Over the last 2 weeks, how often have you been bothered by any of the following problems? 1. Little interest or pleasure in doing things: not at all 2. Feeling down, depressed, or hopeless: not at all Total score: 0 PHQ-9 3. Trouble falling or staying asleep, or sleeping too much: Not at all 4. Feeling tired or having little energy: Not at all 5. Poor appetite or overeating: Not at all 6. Feeling bad about yourself - or that you are a failure or have let yourself or your family down: Not at all 7. Trouble concentrating on things, such as reading the newspaper or watching television: Not at all 8. Moving or speaking so slowly that other people could have noticed? - Or the opposite - being so fidgety or restless that you have been moving around a lot more than usual: not at all 9. Thoughts that you would be better off or of hurting yourself in some way: Not at all Total score: 0 Source: Developed by Drs. Efrain Guerrero, Yoko Roque, Sunil Ibrahim and colleagues, with an educational carrie from [employer]. Depression screen completed yes Social History Living Situation History Lives With: Family Housing: House Tobacco History Smoking Status: Never smoker Second Hand Smoke Exposure: No Alcohol History Alcohol Intake: Never Substance Use History Substance Use: NONE Domestic Abuse History Do You Feel Safe at Home: Yes Past Medical History Past Medical History Have you ever been diagnosed with any of the following: Neurological Problems Cerebrovascular Accident (CVA): No Transient Ischemic Attacks (TIA): No Dementia: No Alzheimer's Disease: No Parkinson's Disease: No Brain Tumor: No Meningitis: No Seizures: No Epilepsy: No Multiple Sclerosis: No Cerebral Palsy: No Amyotrophic Lateral Sclerosis (ALS/Francy Gehrig's): No Guillain-Swink Syndrome: No Spina Bifida: No Paralysis: No Peripheral Neuropathy: No Banks's Palsy: No Subdural Hematoma: No Migraine: No Head Trauma: No Spinal Cord Injury: No Traumatic Brain Injury: No Cardiology Problems Myocardial Infarction: No Cardiac Arrhythmia: No Atrial Fibrillation: No Angina: No Heart Murmur: No Coronary Artery Disease: No Atherosclerotic Heart Disease: No Peripheral Vascular Disease: No Hypercholesterolemia: No Aneurysm: No Congestive Heart Failure: No Congenital Heart Disease: No Valvular Heart Disease: No Rheumatic Fever: No Cardiomyopathy: No Edema: No Pericarditis: No Hypertension: Yes (FATHER) Hypotension: No Respiratory Problems Chronic Obstructive Pulmonary Disease (COPD): No Asthma: No Bronchitis: No Emphysema: No Pneumonia: No Pulmonary Fibrosis: No Tuberculosis: No Pulmonary Embolism: No Pulmonary Edema: No Hx Cough: No Cough: No Wheezing: No Chest Deformities: No Smoking: No Smoking Exposure: No Tobacco Use: No Stomache/Intestinal Problems Liver Cancer: No Hepatitis: No Cirrhosis: No Pancreatic Cancer: No Genital/Urinary Problems Renal Disease: No Kidney Stones: No Polycystic Kidney Disease: No Neurogenic Bladder: No Inguinal Hernia: No Dialysis: No Reproductive Problems Breast Cancer: No Endometriosis: No Fibroids: No Genital Herpes: No Gonorrhea: No Pelvic Inflammatory Disease: No Polycystic Ovarian Syndrome: No Previous Pregnancies: No Syphilis: No Uterine Prolapse: No Musculoskeletal Problems Muscular Dystrophy: No Myasthenia Gravis: No Marfan's Syndrome: No Bone Cancer: No Arthritis: No Rheumatoid Arthritis: No Osteoporosis: No Degenerative Disk Disease: No Gout: No Scoliosis: No Carpal Tunnel Syndrome: No Fibromyalgia: No Fractures: No Degenerative Joint Disease: No Osteomyelitis: No Poliovirus: No Head,Eye,Nose,Throat Problems Cataracts: No Glaucoma: No Blind: No Retinal Detachment: No Macular Degeneration: No Chronic Ear Infections: No Deafness: No Eye Prosthesis: No Endocrine Problems Diabetes Mellitus Type 1: No Diabetes Mellitus Type 2: Yes Hypoglycemia: No [place]'s Syndrome: No [place]'s Disease: No Hyperthyroidism: No Hypothyroidism: No Thyroid Cancer: No Parathyroid Disease: No Pituitary Disease: No Systemic Lupus Erythematosus: No Syndrome of Inappropriate Antidiuretic Hormone: No Adrenal Disease: No Graves' Disease: No Blood Problems Anemia: No Leukemia: No Hemophilia: No Thalassemia: No Sickle Cell Disease: No Clotting Problems: No Psychologic Problems Schizophrenia: No Recreational Drug Use: No Bipolar Disorder: No Depression: No Anxiety: Yes Behavior Problems: No Self-Mutilation: No Attention Deficit Disorder: No Attention Deficit Hyperactivity Disorder: No Depression: No Post Traumatic Stress Disorder: No Eating Disorder: No Other Problems Hospitalization: No Down Syndrome: No Autism: No Developmental Delay: No Cosmetic Surgery: No Shingles: No Falls: No Blood Transfusions: No Blood Transfusion Reaction: No Anesthesia Reactions: No Organ Transplant: No Chemotherapy: No Radiation Therapy: No Hyperbaric Therapy: No Hepatitis A: No Hepatitis B: No Hepatitis C: No Communicable Disease: No Cancer: Yes (FATHER/ STOMACH CANCER) Cervical Cancer: No Lung Cancer: No Ovarian Cancer: No Surgical History Angioplasty: No Appendectomy: No Bariatric Surgery: No Breast Surgery: No Cancer Surgery: No Carotid Endarterectomy: No Cholecystectomy: No Colectomy: No Colostomy: No Coronary Artery Bypass Graft: No Valve Replacement: No Herniorrhaphy: No Total Hip Replacement: No Total Knee Replacement: No Hysterectomy: No Pacemaker: No Sinus Surgery: No Splenectomy: No TAHBSO-Total Abdominal Hysterectomy: No Thyroidectomy: No Ureter Stent: No History of Present Illness HPI Narrative - Lea Khalil is a 29-year-old with twin at 15 weeks and 1 day gestation, presenting for care. She has a history of infertility treated with Clomid for the current . - Patient reports intermittent vaginal bleeding - Describes it as comes and goes - Most recent episode occurred after climbing 5 flights of stairs at work due to a broken elevator - No mention of quantity, color, or associated pain - Denies current cramping or spotting - Recent A1c result of 5.6% (patient initially referred to it as hemoglobin) - Patient mentions having had a recent appointment with a specialist (presumably maternal- medicine) - Details of this appointment were not discussed - No reported changes in overall health status or daily functioning - No mention of other -related symptoms or concerns No contractions/ LOF/VB, reports good FM No DEVLIN/VC/RUQ/Epig pain Care OB Visit Log OB Flowsheet Initial Weight: Not Recorded Date -?-?-?-?-?-?-?-?-?-?-?-?- EGA Weight Edema CTX Effacement BP Fundal ht Pres Dilation Effacement Station Visit Note Alb Glu FHR Mov 11/19/24 -?-?-?-?-?-?-?-?-?-?-?-?- 15w 1d 104.893 kg 125/83 Annette Khalil, 29-year-old with a twin at 15w1d, presents for routine care. History of infertility treated with Clomid. Reports intermittent vaginal bleeding, most recently after climbing five flights of stairs at work; denies current bleeding or cramping. No contractions, LOF, or VB. Reports good movement. A1c noted at 5.6%. heart tones auscultated at 149 and 158 bpm. No current complaints otherwise. Men tions recent specialist visit; details unavailable. Plan: Follow up in 4 weeks Schedule glucose tolerance test at 20?21 weeks due to twin Provide new genetic testing forms (prior results inadequate) Contact [facility]?s office to request fanta zhanga report Recommend rest during bleeding episodes Advise patient to park at ground level o r behind buildings to avoid stairs Continue routine education and precautions for twin gestation ARIN Calculator Estimated Delivery Date Method Current WG Current Estimate 05/12/25 LMP (Certain) 15w 2d Exam General General Appearance: alert, in no apparent distress and healthy appearing Head Head exam: atraumatic Neck Neck exam: Present normal inspection and trachea midline Chest Chest inspection: Present normal inspection and symmetric chest wall rise External exam: Present normal external exam; Absent tenderness Neuro Neurological exam: Present oriented X3 Psych Psychiatric exam: Present normal affect and normal mood Assessment & Plan Diagnosis / Problem List (1) Twin gestation in first trimester: Status: Acute (2) with history of infertility: Status: Acute Plan Problem List - Twin - Intermittent vaginal bleeding - History of infertility - Gestational diabetes mellitus Assessment - Twin at 15 weeks and 1 day gestation - History of infertility treated with Clomid for current - Intermittent vaginal bleeding - Hemoglobin A1c of 5.6% - heart rates: 149 bpm and 158 bpm Plan - Follow up in 4 weeks - Schedule glucose tolerance test at 20-21 weeks for early diabetes screening due to twin - Provide forms for genetic testing due to previous inadequate results - Call Chiquis's office to obtain placenta report - Advise rest when bleeding occurs - Recommend parking on street level or in parking lots behind buildings to avoid stairs when possible Educated the patient on labor signs, including regular contractions, lower back pain, and changes in vaginal discharge. Advised avoiding heavy lifting and getting adequate rest. Instructed to contact the office immediately if any signs occur. Discussed the importance of a balanced diet rich in folic acid, iron, and calcium, and provided a list of recommended and to-avoid foods. Emphasized avoiding high-sugar foods to reduce gestational diabetes risk. Encouraged hydration and frequent, small meals for energy.. Office Procedures OB Clinic LOC & Office Proc's Nursing/Assessment Patient Status: Established Patient OB Clinic Nursing Assessment: Medication Reconciliation, Update PMH in EMR and Vital Signs OB Clinic Coordination of Care: Complex Care and Chronic Disease 1-5, Consent,records obtained, informed consent, Education Simp Pt/Fam, Lab and Imaging orders and Staff clarify orders Special Needs: Heart tones Miscellaneous Interventions: Blood/Urine Collection Established Patient Charge Established Patient Point Assignment: 160 Established Patient Point Charge: EP Level 5 (160-above) Bedside Ultrasounds US Transabdominal <14 weeks at bedside: Yes
[2024-11-19 11:41] VITALS: BP 125/83; PULSE 109; RESP 20; TEMP 36.6; O2SAT 96; BMI 42.5
== END 2024-11-19 11:49 | disposition home or self-care (01) ==
LOC: HODSOBC 11:17
PROVIDERS: PCP Obstetrics & Gynecology; Referring Provider Obstetrics & Gynecology; Supervising Provider Obstetrics & Gynecology; Visit Provider Obstetrics & Gynecology
DX: O09.892 Supervision of other high risk pregnancies, second trimester (principal); Z3A.15 15 weeks gestation of pregnancy; O30.002 Twin pregnancy, unspecified number of placenta and unspecified number of amniotic sacs, second trimester; O09.02 Supervision of pregnancy with history of infertility, second trimester
CPT/HCPCS: 76801; 99215; G0463

== ENCOUNTER 2025-01-02 08:37 | Outpatient (AMB) | payer OTHER, SELFPAY ==
--- NOTE | 2025-01-02 08:45 | AMB.OBVISIT ---
Vital Signs 01/02/25 08:46 Height 1.57 m Height Method Measured Weight 108.919 kg Weight Measurement Method Standing Scale BMI 44.1 BP 119/76 Blood Pressure Source Automatic Cuff Blood Pressure Location Right Upper Arm Position Sitting Respiration 17 Pulse 112 H Pulse Source Monitor Temp 97.9 F Temp Source Temporal Artery Scan Pulse Oximetry (%) 95 Oxygen Delivery Method Room Air Allergies/Home Meds Allergies & Medications Allergies NKA* Allergy (Uncoded 01/27/25 15:45) Medication Reconciliation doxylamine 10 mg-pyridoxine (vit B6) 10 mg tablet,delayed release (Diclegis) 1 tab PO BID 30 days #60 tabs 09/29/24 [Rx Confirmed 01/02/25] folic acid 1 mg tablet 1 mg PO QDAY 09/29/24 [History Confirmed 01/02/25] metformin 1,000 mg tablet 1,000 mg PO QDAY 09/29/24 [History Confirmed 01/02/25] ondansetron 4 mg disintegrating tablet 4 mg PO Q6H PRN nausea and vomiting 30 days #120 tabs 09/29/24 [Rx Confirmed 01/02/25] insulin glargine 100 unit/mL (3 mL) subcutaneous pen (Basaglar KwikPen U-100 Insulin) 20 unit (0.2 mL) subcut QPM 30 days #6 mL 01/27/25 [Rx] pen needle, diabetic 29 gauge x 1/2 #50 ea 01/27/25 [Rx] Intake Visit Data Collection New Patient or Established: Established Patient (seen at [facility] within 3 years) Reason for Visit:: OBC Seen by Clinical Staff ONLY (RN/MA): No 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 1. Little interest or pleasure in doing things: not at all 2. Feeling down, depressed, or hopeless: not at all Total score: 0 PHQ-9 3. Trouble falling or staying asleep, or sleeping too much: Not at all 4. Feeling tired or having little energy: Not at all 5. Poor appetite or overeating: Not at all 6. Feeling bad about yourself - or that you are a failure or have let yourself or your family down: Not at all 7. Trouble concentrating on things, such as reading the newspaper or watching television: Not at all 8. Moving or speaking so slowly that other people could have noticed? - Or the opposite - being so fidgety or restless that you have been moving around a lot more than usual: not at all 9. Thoughts that you would be better off or of hurting yourself in some way: Not at all Total score: 0 If you checked off any problems, how difficult have these problems made it for you to do your work, take care of things at home, or get along with other people?: not difficult at all Source: Developed by Drs. Efrain Guerrero, Yoko Roque, Sunil Ibrahim and colleagues, with an educational carrie from [employer]. 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 Past Medical History: No Hx Hypothyroidism, No Hx Hyperthyroidism, No Hx Breast Cancer, Yes Hx Hypertension (FATHER), Yes Hx Cancer (FATHER/ STOMACH CANCER), No Hx Anemia, No Hx Renal Disease, No Hx Diabetes Mellitus Type 1, Yes Hx Diabetes Mellitus Type 2, No Hx Hysterectomy and No Hx Polycystic Ovarian Syndrome Care OB Visit Log OB Flowsheet Initial Weight: Not Recorded Date <del>?</del> EGA Weight BP Alb Glu CTX Pres Fundal ht FHR Mov Dilation Station Effacement Hx Notes Visit Note 11/19/24 <del>?</del> 15w 1d 104.893 kg 125/83 Lea Khalil, 29-year-old with a twin at 15w1d, presents for routine care. History of infertility treated with Clomid. Reports intermittent vaginal bleeding, most recently after climbing five flights of stairs at work; denies current bleeding or cramping. No contractions, LOF, or VB. Reports good movement. A1c noted at 5.6%. heart tones auscultated at 149 and 158 bpm. No current complaints otherwise. Mentions recent specialist visit; details unavailable. Plan: Follow up in 4 weeks Schedule glucose tolerance test at 20?21 weeks due to twin Provide new genetic testing forms (prior results inadequate) Contact [employer]?s office to request placenta report Recommend rest during bleeding episodes Advise patient to park at ground level or behind buildings to avoid stairs Continue routine education and precautions for twin gestation 01/02/25 <del>?</del> 21w 3d 108.919 kg 119/76 absent unknown active at 21w3d with di-di twin gestation via Clomid, hx infertility, c/o pelvic pressure. FHRs WNL. jewel: Disability paperwork effective 01/08, 4w f/u, glucose test form given. 01/27/25 <del>?</del> 25w 0d 110.847 kg 113/76 absent unknown active at 25w0d with twin gestation and GDM on metformin 1000mg BID. Fasting BG 114?116, PP up to 150, recent spike to 229. Genetic testing pending. Plan: Add Lantus 20u qhs. Continue BG monitoring (goal: fasting <100, 1hr PP <130?135). Reassess in 1?2 weeks. Consider stopping metformin and adding mealtime insulin if control remains poor. Sono ordered. Follow up with Dr. Ribeiro tomorrow. ARIN Calculator Estimated Delivery Date Method Current WG Current Estimate 05/12/25 LMP (Certain) 26w 5d Office Procedures OB Clinic LOC & Office Proc's Nursing/Assessment Patient Status: Established Patient OB Clinic Nursing Assessment: Medication Reconciliation, Update PMH in EMR and Vital Signs OB Clinic Coordination of Care: Education Complex Pt/Fam, Consent,records obtained, informed consent, Lab and Imaging orders and Staff clarify orders Special Needs: Heart tones Established Patient Charge Established Patient Point Assignment: 110 Established Patient Point Charge: EP Level 3 (80-115) Assessment & Plan Diagnosis / Problem List (1) Gestational diabetes: Status: Acute (2) Twin gestation in first trimester: Status: Acute (3) with history of infertility: Status: Acute
[2025-01-02 08:46] VITALS: BP 119/76; PULSE 112; RESP 17; TEMP 36.6; O2SAT 95; BMI 44.1
== END 2025-01-02 09:17 | disposition home or self-care (01) ==
LOC: HODSOBC 08:37
PROVIDERS: PCP Obstetrics & Gynecology; Referring Provider Obstetrics & Gynecology; Supervising Provider Obstetrics & Gynecology; Visit Provider Obstetrics & Gynecology
DX: O09.02 Supervision of pregnancy with history of infertility, second trimester (principal); O09.892 Supervision of other high risk pregnancies, second trimester; O30.042 Twin pregnancy, dichorionic/diamniotic, second trimester; O24.414 Gestational diabetes mellitus in pregnancy, insulin controlled; Z3A.21 21 weeks gestation of pregnancy
CPT/HCPCS: 99213; G0463

== ENCOUNTER 2025-01-27 10:44 | Outpatient (AMB) | payer OTHER, SELFPAY ==
[2025-01-27 11:30] VITALS: BP 113/76; PULSE 109; RESP 17; TEMP 36.6; O2SAT 97; BMI 44.9
--- NOTE | 2025-01-27 11:30 | OBCLNT_ITS ---
Vital Signs 01/27/25 11:30 Height 1.57 m Height Method Stated Weight 110.847 kg Weight Measurement Method Standing Scale BMI 44.9 BP 113/76 Blood Pressure Source Automatic Cuff Blood Pressure Location Right Upper Arm Position Sitting Respiration 17 Pulse 109 H Pulse Source Monitor Temp 97.9 F Temp Source Temporal Artery Scan Pulse Oximetry (%) 97 Oxygen Delivery Method Room Air Allergies/Home Meds Allergies & Medications Allergies NKA* Allergy (Uncoded 01/27/25 15:45) Intake Visit Data Collection New Patient or Established: Established Patient (seen at [facility] within 3 years) Reason for Visit:: OBC Seen by Clinical Staff ONLY (RN/MA): No 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 1. Little interest or pleasure in doing things: not at all 2. Feeling down, depressed, or hopeless: not at all Total score: 0 PHQ-9 3. Trouble falling or staying asleep, or sleeping too much: Not at all 4. Feeling tired or having little energy: Not at all 5. Poor appetite or overeating: Not at all 6. Feeling bad about yourself - or that you are a failure or have let yourself or your family down: Not at all 7. Trouble concentrating on things, such as reading the newspaper or watching television: Not at all 8. Moving or speaking so slowly that other people could have noticed? - Or the opposite - being so fidgety or restless that you have been moving around a lot more than usual: not at all 9. Thoughts that you would be better off or of hurting yourself in some way: Not at all Total score: 0 If you checked off any problems, how difficult have these problems made it for you to do your work, take care of things at home, or get along with other people?: not difficult at all Source: Developed by Drs. Efrain Guerrero, Yoko Roque, Sunil Ibrahim and colleagues, with an educational carrie from [employer]. 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 Past Medical History: No Hx Hypothyroidism, No Hx Hyperthyroidism, No Hx Breast Cancer, Yes Hx Hypertension (FATHER), Yes Hx Cancer (FATHER/ STOMACH CANCER), No Hx Anemia, No Hx Renal Disease, No Hx Diabetes Mellitus Type 1, Yes Hx Diabetes Mellitus Type 2, No Hx Hysterectomy and No Hx Polycystic Ovarian Syndrome Care OB Visit Log OB Flowsheet Initial Weight: Not Recorded Date -?-?-?-?-?-?-?-?-?-?-?-?- EGA Weight BP Alb Glu CTX Pres Fundal ht FHR Mov Dilation Station Effacement Hx Notes Visit Note 11/19/24 -?-?-?-?-?-?-?-?-?-?-?-?- 15w 1d 104.893 kg 125/83 Lea Khalil, 29-year-old with a twin at 15w1d, presents for routine care. History of infertility treated with Clomid. Reports intermittent vaginal bleeding, most recently after climbing five flights of stairs at work; denies current bleeding or cramping. No contractions, LOF, or VB. Reports good movement. A1c noted at 5.6%. heart tones auscultated at 149 and 158 bpm. No current complaints otherwise. Mentions recent specialist visit; details unavailable. Plan: Follow up in 4 weeks Schedule glucose tolerance test at 20?21 weeks due to twin Provide new genetic testing forms (prior results inadequate) Contact [employer]?s office to request fanta vicentea report Recommend rest during bleeding episodes Advise patient to park at ground level o r behind buildings to avoid stairs Continue routine education and precautions for twin gestation 01/27/25 -?-?-?-?-?-?-?-?-?-?-?-?- 25w 0d 110.847 kg 113/76 absent unknown ac tive at 25w0d with twin gestation and GDM on metformin 1000mg BID. Fasting BG 114?116, PP up to 150, recent spike to 229. Genetic testing pending. Plan: Add Lantus 20u qhs. Continue BG monitoring (goal: fasting <100, 1hr PP <130?135). Reassess in 1?2 weeks. Consider stopping metformin and adding mealtime insulin if control remains poor. Sono ordered. Follow up with Dr. Ribeiro tomorrow. ARIN Calculator Estimated Delivery Date Method Current WG Current Estimate 05/12/25 LMP (Certain) 25w 3d Office Procedures OB Clinic LOC & Office Proc's Nursing/Assessment Patient Status: Established Patient OB Clinic Nursing Assessment: Medication Reconciliation, Update PMH in EMR and Vital Signs OB Clinic Coordination of Care: Complex Care and Chronic Disease 1-5, Consent,records obtained, informed consent, Education Simp Pt/Fam and Staff clarify orders Special Needs: Heart tones Established Patient Charge Established Patient Point Assignment: 115 Established Patient Point Charge: EP Level 3 (80-115) Assessment & Plan Diagnosis / Problem List (1) Gestational diabetes: Status: Acute (2) Twin gestation in first trimester: Status: Acute Plan Problem List - Twin - Gestational diabetes mellitus Assessment 30-year-old female at 25 weeks 0 days gestation with twin presenting for routine care. Patient has established gestational diabetes mellitus with fasting blood glucose of 114-116 mg/dL and postprandial glucose up to 150 mg/dL. Currently on metformin 1000 mg BID with suboptimal glycemic control. Recent blood glucose reading of 229 mg/dL noted. Genetic testing results pending from [facility]. Plan - Start long-acting insulin (Lantus) 20 units at night, in addition to current metformin regimen (1000mg twice daily) - Continue blood glucose monitoring: fasting goal <100 mg/dL, 1-hour postprandial goal <130-135 mg/dL - Follow up in 1-2 weeks to review blood glucose numbers - If blood glucose remains unsatisfactory, consider discontinuing metformin and adding mealtime insulin - Perform ultrasound to check on twin fetuses - Fill out genetic testing forms - Patient to follow up with Dr. Ribeiro tomorrow
== END 2025-01-27 11:58 | disposition home or self-care (01) ==
LOC: HODSOBC 10:44
PROVIDERS: PCP Obstetrics & Gynecology; Referring Provider Obstetrics & Gynecology; Supervising Provider Obstetrics & Gynecology; Visit Provider Obstetrics & Gynecology
DX: O09.892 Supervision of other high risk pregnancies, second trimester (principal); O30.002 Twin pregnancy, unspecified number of placenta and unspecified number of amniotic sacs, second trimester; Z3A.25 25 weeks gestation of pregnancy; O24.414 Gestational diabetes mellitus in pregnancy, insulin controlled
CPT/HCPCS: 99213; G0463

== ENCOUNTER 2025-02-11 09:45 | Outpatient (AMB) | payer OTHER, SELFPAY ==
[2025-02-11 09:58] VITALS: BP 110/73; PULSE 102; RESP 20; TEMP 36.4; O2SAT 96; BMI 44.4
--- NOTE | 2025-02-11 09:58 | OBCLNT_ITS ---
Vital Signs 02/11/25 09:58 Height 1.57 m Height Method Stated Weight 109.372 kg Weight Measurement Method Standing Scale BMI 44.4 BP 110/73 Blood Pressure Source Automatic Cuff Blood Pressure Location Left Upper Arm Position Sitting Respiration 20 Pulse 102 H Pulse Source Monitor Temp 97.6 F Temp Source Oral Pulse Oximetry (%) 96 Oxygen Delivery Method Room Air Allergies/Home Meds Allergies & Medications Allergies NKA* Allergy (Uncoded 02/11/25 09:59) Medication Reconciliation doxylamine 10 mg-pyridoxine (vit B6) 10 mg tablet,delayed release (Diclegis) 1 tab PO BID 30 days #60 tabs 09/29/24 [Rx Confirmed 02/11/25] folic acid 1 mg tablet 1 mg PO QDAY 09/29/24 [History Confirmed 02/11/25] metformin 1,000 mg tablet 1,000 mg PO QDAY 09/29/24 [History Confirmed 02/11/25] ondansetron 4 mg disintegrating tablet 4 mg PO Q6H PRN nausea and vomiting 30 days #120 tabs 09/29/24 [Rx Confirmed 02/11/25] insulin glargine 100 unit/mL (3 mL) subcutaneous pen (Basaglar KwikPen U-100 Insulin) 20 unit (0.2 mL) subcut QPM 30 days #6 mL 01/27/25 [Rx Confirmed 02/11/25] pen needle, diabetic 29 gauge x 1/2 #50 ea 01/27/25 [Rx Confirmed 02/11/25] Intake Visit Data Collection New Patient or Established: Established Patient (seen at [facility] within 3 years) Reason for Visit:: CARE Seen by Clinical Staff ONLY (RN/MA): No 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 1. Little interest or pleasure in doing things: not at all 2. Feeling down, depressed, or hopeless: not at all Total score: 0 PHQ-9 3. Trouble falling or staying asleep, or sleeping too much: Not at all 4. Feeling tired or having little energy: Not at all 5. Poor appetite or overeating: Not at all 6. Feeling bad about yourself - or that you are a failure or have let yourself or your family down: Not at all 7. Trouble concentrating on things, such as reading the newspaper or watching television: Not at all 8. Moving or speaking so slowly that other people could have noticed? - Or the opposite - being so fidgety or restless that you have been moving around a lot more than usual: not at all 9. Thoughts that you would be better off or of hurting yourself in some way: Not at all Total score: 0 Source: Developed by Drs. Efrain Guerrero, Yoko Roque, Sunil Ibrahim and colleagues, with an educational carrie from [employer]. 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 Past Medical History: No Hx Hypothyroidism, No Hx Hyperthyroidism, No Hx Breast Cancer, Yes Hx Hypertension (FATHER), Yes Hx Cancer (FATHER/ STOMACH CANCER), No Hx Anemia, No Hx Renal Disease, No Hx Diabetes Mellitus Type 1, Yes Hx Diabetes Mellitus Type 2, No Hx Hysterectomy and No Hx Polycystic Ovarian Syndrome Care OB Visit Log OB Flowsheet Initial Weight: Not Recorded Date -?-?-?-?-?-?-?-?-?-?-?-?- EGA Weight BP Alb Glu CTX Pres Fundal ht FHR Mov Dilation Station Effacement Hx Notes Visit Note 11/19/24 -?-?-?-?-?-?-?-?-?-?-?-?- 15w 1d 104.893 kg 125/83 Lea Khalil, 29-year-old with a twin at 15w1d, presents for routine care. History of infertility treated with Clomid. Reports intermittent vaginal bleeding, most recently after climbing five flights of stairs at work; denies current bleeding or cramping. No contractions, LOF, or VB. Reports good movement. A1c noted at 5.6%. heart tones auscultated at 149 and 158 bpm. No current complaints otherwise. Mentions recent specialist visit; details unavailable. Plan: Follow up in 4 weeks Schedule glucose tolerance test at 20?21 weeks due to twin Provide new genetic testing forms (prior results inadequate) Contact [employer]?s office to request fanta julissa report Recommend rest during bleeding episodes Advise patient to park at ground level o r behind buildings to avoid stairs Continue routine education and precautions for twin gestation 01/02/25 -?-?-?-?-?-?-?-?-?-?-?-?- 21w 3d 108.919 kg 119/76 absent unknown ac tive at 21w3d with di-di twin gestation via Clomid, hx infertility, c/o pelvic pressure. FHRs WNL. jewel: Disability paperwork effective 01/08, 4w f/u, glucose test form given. 01/27/25 -?-?-?-?-?-?-?-?-?-?-?-?- 25w 0d 110.847 kg 113/76 absent unknown ac tive at 25w0d with twin gestation and GDM on metformin 1000mg BID. Fasting BG 114?116, PP up to 150, recent spike to 229. Genetic testing pending. Plan: Add Lantus 20u qhs. Continue BG monitoring (goal: fasting <100, 1hr PP <130?135). Reassess in 1?2 weeks. Consider stopping metformin and adding mealtime insulin if control remains poor. Juarez ordered. Follow up with Dr. Ribeiro tomorrow. 02/11/25 -?-?-?-?-?-?-?-?-?-?-?-?- 27w 1d 109.372 kg 110/73 occasional unknown active No contractions, LOF, VB and reports good FM. - She reports feeling movement: - Can feel both babies move - Baby B moves less, possibly due to p osition - Gestational diabetes management: - Using lancets for blood glucose kevan adamson - Reports fasting blood glucose levels of 83-84 mg/dL - Post-prandial levels typically 120-1 30 mg/dL - One instance of 141 mg/dL post-prandial - Next appointment scheduled for routine labs including CBC, RPR, and T-dap shot - Patient to attend [facility] specialist kartik benoit on February 25 - Follow-up appointment to be scheduled after the ultrasound with Dr. Pool. ARIN Calculator Estimated Delivery Date Method Current WG Current Estimate 05/12/25 LMP (Certain) 27w 1d Notes Visit Date: 02/11/25 Last Updated by: Krish Ferguson MD - heart rates: - Baby A: 142 bpm - Baby B: 145 bpm Office Procedures OB Clinic LOC & Office Proc's Nursing/Assessment Patient Status: Established Patient OB Clinic Nursing Assessment: Medication Reconciliation, Update PMH in EMR and Vital Signs OB Clinic Coordination of Care: Complex Care and Chronic Disease 1-5, Consent,records obtained, informed consent, Education Simp Pt/Fam, Lab and Imaging orders, Results/Orders obtained and Staff clarify orders Special Needs: Heart tones Established Patient Charge Established Patient Point Assignment: 135 Established Patient Point Charge: EP Level 4 (120-155)
== END 2025-02-11 10:13 | disposition home or self-care (01) ==
LOC: HODSOBC 09:45
PROVIDERS: Supervising Provider Obstetrics & Gynecology; Visit Provider Obstetrics & Gynecology
DX: O09.892 Supervision of other high risk pregnancies, second trimester (principal); O24.414 Gestational diabetes mellitus in pregnancy, insulin controlled; Z3A.27 27 weeks gestation of pregnancy
CPT/HCPCS: 99214; G0463

== ENCOUNTER 2025-03-03 08:44 | Outpatient (AMB) | payer OTHER, MEDICAID, SELFPAY ==
[2025-03-03 08:52] VITALS: BP 129/78; PULSE 103; RESP 18; TEMP 36.8; O2SAT 98; BMI 44.5
--- NOTE | 2025-03-03 08:52 | OBCLNT_ITS ---
Vital Signs 03/03/25 08:52 Height 1.57 m Height Method Stated Weight 109.769 kg Weight Measurement Method Standing Scale BMI 44.5 BP 129/78 Blood Pressure Source Automatic Cuff Blood Pressure Location Left Upper Arm Position Sitting Respiration 18 Pulse 103 H Pulse Source Monitor Temp 98.2 F Temp Source Oral Pulse Oximetry (%) 98 Oxygen Delivery Method Room Air Allergies/Home Meds Allergies & Medications Allergies NKA* Allergy (Uncoded 03/03/25 08:53) Medication Reconciliation doxylamine 10 mg-pyridoxine (vit B6) 10 mg tablet,delayed release (Diclegis) 1 tab PO BID 30 days #60 tabs 09/29/24 [Rx Confirmed 03/03/25] folic acid 1 mg tablet 1 mg PO QDAY 09/29/24 [History Confirmed 03/03/25] metformin 1,000 mg tablet 1,000 mg PO QDAY 09/29/24 [History Confirmed 03/03/25] ondansetron 4 mg disintegrating tablet 4 mg PO Q6H PRN nausea and vomiting 30 days #120 tabs 09/29/24 [Rx Confirmed 03/03/25] insulin glargine 100 unit/mL (3 mL) subcutaneous pen (Basaglar KwikPen U-100 Insulin) 20 unit (0.2 mL) subcut QPM 30 days #6 mL 01/27/25 [Rx Confirmed 03/03/25] pen needle, diabetic 29 gauge x 1/2 #50 ea 01/27/25 [Rx Confirmed 03/03/25] Intake Visit Data Collection New Patient or Established: Established Patient (seen at [facility] within 3 years) Reason for Visit:: OBC / DUE FOR TDAP Seen by Clinical Staff ONLY (RN/MA): No Philosophy And Religion Instructor Required: No Do You Feel Safe at Home: Yes Authorities Contacted: N/A PCP or OBGYN visit in last 3 months: Yes Date of Last PCP or OBGYN visit: 02/11/25 Hx Now: Yes Are you currently on any form of Control: No Pain Present Currently: Yes Pain Scale Used: Adams-Galvin/Numerical Pain scale:: 8 Smoking Status Smoking Status: Never smoker Questionnaires Covid-19 Vaccine Questionnaire Has patient been vacinated for Covid-19 Have you been vacinated for Covid-19: Yes PHQ-9 PHQ-2 Over the last 2 weeks, how often have you been bothered by any of the following problems? 1. Little interest or pleasure in doing things: not at all 2. Feeling down, depressed, or hopeless: not at all Total score: 0 PHQ-9 3. Trouble falling or staying asleep, or sleeping too much: Not at all 4. Feeling tired or having little energy: Not at all 5. Poor appetite or overeating: Not at all 6. Feeling bad about yourself - or that you are a failure or have let yourself or your family down: Not at all 7. Trouble concentrating on things, such as reading the newspaper or watching television: Not at all 8. Moving or speaking so slowly that other people could have noticed? - Or the opposite - being so fidgety or restless that you have been moving around a lot more than usual: not at all 9. Thoughts that you would be better off or of hurting yourself in some way: Not at all Total score: 0 If you checked off any problems, how difficult have these problems made it for you to do your work, take care of things at home, or get along with other people?: not difficult at all Source: Developed by Drs. Efrain Guerrero, Yoko Roque, Sunil Ibrahim and colleagues, with an educational carrie from [employer]. 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 Medical History Past Medical History: No Hx Hypothyroidism, No Hx Hyperthyroidism, No Hx Breast Cancer, Yes Hx Hypertension (FATHER), Yes Hx Cancer (FATHER/ STOMACH CANCER), No Hx Anemia, No Hx Renal Disease, No Hx Diabetes Mellitus Type 1, Yes Hx Diabetes Mellitus Type 2, No Hx Hysterectomy and No Hx Polycystic Ovarian Syndrome Care OB Visit Log OB Flowsheet Initial Weight: Not Recorded Date -?-?-?-?-?-?-?-?-?-?-?-?- EGA Weight BP Alb Glu CTX Pres Fundal ht FHR Mov Dilation Station Effacement Hx Notes Visit Note 11/19/24 -?-?-?-?-?-?-?-?-?-?-?-?- 15w 1d 104.893 kg 125/83 Lea Khalil, 29-year-old with a twin at 15w1d, presents for routine care. History of infertility treated with Clomid. Reports intermittent vaginal bleeding, most recently after climbing five flights of stairs at work; denies current bleeding or cramping. No contractions, LOF, or VB. Reports good movement. A1c noted at 5.6%. heart tones auscultated at 149 and 158 bpm. No current complaints otherwise. Mentions recent specialist visit; details unavailable. Plan: Follow up in 4 weeks Schedule glucose tolerance test at 20?21 weeks due to twin Provide new genetic testing forms (prior results inadequate) Contact [employer]?s office to request fanta julissa report Recommend rest during bleeding episodes Advise patient to park at ground level o r behind buildings to avoid stairs Continue routine education and precautions for twin gestation 01/02/25 -?-?-?-?-?-?-?-?-?-?-?-?- 21w 3d 108.919 kg 119/76 absent unknown ac tive at 21w3d with di-di twin gestation via Clomid, hx infertility, c/o pelvic pressure. FHRs WNL. jewel: Disability paperwork effective 01/08, 4w f/u, glucose test form given. 01/27/25 -?-?-?-?-?-?-?-?-?-?-?--?- 25w 0d 110.847 kg 113/76 absent unknown ac tive at 25w0d with twin gestation and GDM on metformin 1000mg BID. Fasting BG 114?116, PP up to 150, recent spike to 229. Genetic testing pending. Plan: Add Lantus 20u qhs. Continue BG monitoring (goal: fasting <100, 1hr PP <130?135). Reassess in 1?2 weeks. Consider stopping metformin and adding mealtime insulin if control remains poor. Sono ordered. Follow up with Dr. Ribeiro tomorrow. 02/11/25 -?-?-?-?-?-?-?-?-?-?-?-?- 27w 1d 109.372 kg 110/73 occasional unknown active No contractions, LOF, VB and reports good FM. - She reports feeling movement: - Can feel both babies move - Baby B moves less, possibly due to p osition - Gestational diabetes management: - Using lancets for blood glucose kevan adamson - Reports fasting blood glucose levels of 83-84 mg/dL - Post-prandial levels typically 120-1 30 mg/dL - One instance of 141 mg/dL post-prandial - Next appointment scheduled for routine labs including CBC, RPR, and T-dap shot - Patient to attend [facility] on February 25 - Follow-up appointment to be scheduled after the ultrasound with Dr. Pool. 03/03/25 -?-?-?-?-?-?-?-?-?-?-?-?- 30w 0d 109.769 kg 129/78 occasional unknown active 30w twin gestation with breech and transverse lie, reports groin pain, FHRs WNL (136/138), BG controlled (<140?150), no other concerns. Plan: Complete labs (CBC, RPR, A1c), monitor BG, see Dr. Pool 03/25, f/u with Dr. Ferguson after, tentatively plan 37w delivery. ARIN Calculator Estimated Delivery Date Method Current WG Current Estimate 05/12/25 LMP (Certain) 30w 0d Notes Visit Date: 02/11/25 Last Updated by: Krish Ferguson MD - heart rates: - Baby A: 142 bpm - Baby B: 145 bpm Office Procedures OB Clinic LOC & Office Proc's Nursing/Assessment Patient Status: Established Patient OB Clinic Nursing Assessment: Medication Reconciliation, Update PMH in EMR and Vital Signs OB Clinic Coordination of Care: Education Complex Pt/Fam, Consent,records obtained, informed consent, Lab and Imaging orders, Results/Orders obtained and Staff clarify orders Special Needs: Heart tones Established Patient Charge Established Patient Point Assignment: 115 Established Patient Point Charge: EP Level 3 (80-115) Assessment & Plan Diagnosis / Problem List (1) Gestational diabetes: Status: Acute (2) Twin gestation in third trimester: Status: Acute
== END 2025-03-03 09:21 | disposition home or self-care (01) ==
LOC: HODSOBC 08:44
PROVIDERS: Supervising Provider Obstetrics & Gynecology; Visit Provider Obstetrics & Gynecology
DX: O09.893 Supervision of other high risk pregnancies, third trimester (principal); O24.414 Gestational diabetes mellitus in pregnancy, insulin controlled; O30.003 Twin pregnancy, unspecified number of placenta and unspecified number of amniotic sacs, third trimester; O32.1XX0 Maternal care for breech presentation, not applicable or unspecified; O32.2XX0 Maternal care for transverse and oblique lie, not applicable or unspecified; Z3A.30 30 weeks gestation of pregnancy
CPT/HCPCS: 99213; G0463

== ENCOUNTER 2025-03-06 18:10 | Observation (INO) | payer OTHER, SELFPAY ==
[2025-03-06] VITALS (34 sets, daily range): BP systolic 116; BP diastolic 55; PULSE 95–112; RESP 16–98; TEMP 36.9; O2SAT 96–98; BMI 43.2
--- NOTE | 2025-03-06 18:24 | XR_ITS ---
Examination: Complete OB ultrasound greater than 14 weeks, twin A Date and time of exam: March 06, 2025, 1900 hours INDICATIONS: Decreased movement today Findings: Viable intrauterine gestation twin A, cephalic presentation Cardiac motion 140 BPM Placenta anterior grade 2 Umbilical cord insertion seen. Amniotic fluid index 13.6 cm. spine anterior. Cervix 3.0 cm. Right ovary 4.1 cm arterial flow Doppler view obscured by bowel gas. Composite estimated gestational age based on BPD, head circumference, abdominal circumference, femur length is 29 weeks 6 days Estimated weight 1380 g. Survey of intracranial anatomy, spinal anatomy, abdominal anatomy, four-chamber heart performed with no abnormalities identified. Impression: Viable twin A cephalic presentation Examination: Complete OB ultrasound greater than 14 weeks twin B Date and time of exam: March 06, 2025, 1900 hours INDICATIONS: Decreased movement today Findings: Viable twin B, breech presentation Cardiac motion 141 BPM Placenta anterior grade 2. Umbilical cord insertion seen Amniotic fluid index 13.6 cm spine maternal left. Composite estimated gestational age based on BPD, head circumference, abdominal circumference, femur length is 31 weeks 0 days Estimated weight 1631 g. Survey of intracranial anatomy, spinal anatomy, abdominal anatomy, four-chamber heart performed with no abnormalities identified. Impression: Viable twin B breech presentation.
[2025-03-06 19:14] LABS: Collection Type, Urine Clean Catch
[2025-03-06 19:24] LABS: Amorphous Crystals,Urine Present (Absent); Bacteria,Urine 3+; Bilirubin,Urine Negative (Negative); Blood,Urine Negative (Negative); Budding Yeast,Urine Present; Clarity,Urine Clear (Clear/Hazy); Color,Urine Lt-Yellow (Lt Yel-Yel); Glucose, Urine 1+ (Negative); Ketones,Urine Trace (Negative); Leukocyte Esterase,Urine Positive (Negative); Nitrite,Urine Negative (Negative); PH,Urine 6.0 (5.0-7.0); Protein,Urine Negative (Neg - Trace); RBC,Urine 3 /hpf (0-3); Specific Gravity,Urine 1.009 (1.001-1.035); Squamous Epithelial Cell,Urine 11 /hpf (0-5); Urobilinogen,Urine Negative mg/dL (0.0-1.0); WBC,Urine 6 /hpf (0-5)
[2025-03-06 19:57] LABS: FFN Specimen Descripton Clr Colrless Aqueous; Fetal Fibronectin Negative (Negative)
[2025-03-06] MEDS: TERBUTALINE SULF INJ 1 MG/ML VIAL 0.25 MG SC (21:20)
[2025-03-06] MEDS: NITROFURANTOIN MACRO 100 MG CAPSULE PO (21:22)
[2025-03-06] MEDS: FLUCONAZOLE 150 MG TABLET PO (21:32)
[2025-03-07 07:56] LABS: BVAG Candida Negative (Negative); Bacterial Vaginosis Markers Negative (Negative); Candida glabrata Negative (Negative); Candida krusei PCR Negative (Negative); Trichomonas Negative (Negative)
== END 2025-03-06 22:05 | disposition home or self-care (01) ==
PROVIDERS: Admitting Provider Obstetrics & Gynecology; Visit Provider Obstetrics & Gynecology
DX: O36.8130 Decreased fetal movements, third trimester, not applicable or unspecified (principal); O32.1XX2 Maternal care for breech presentation, fetus 2; O30.003 Twin pregnancy, unspecified number of placenta and unspecified number of amniotic sacs, third trimester; Z3A.29 29 weeks gestation of pregnancy
CPT/HCPCS: 59025; 59899; 76805; 76810; 81001; 81514; 82731; J3105; A9270

== ENCOUNTER 2025-03-22 10:04 | Observation (INO) | payer OTHER, SELFPAY ==
[2025-03-22] VITALS (40 sets, daily range): BP systolic 118; BP diastolic 74; PULSE 80–111; RESP 20–98; TEMP 37; O2SAT 96–99; BMI 44.8
--- NOTE | 2025-03-22 11:04 | XR_ITS ---
Examination: Complete OB ultrasound greater than 14 weeks Date and time of exam: March 22, 2025, 1137 hrs. Indications: Vaginal bleeding beginning this morning. Findings: Twin A vertex presentation. Cardiac motion 143 BPM. Umbilical cord insertion seen. Amniotic fluid index 13.0 cm. Estimated gestational age 32 weeks 1 day, estimated weight 1831.6 g Twin B breech presentation Cardiac motion 137 BPM Placenta anterior grade 3 Amniotic fluid index 15 cm Estimated gestational age 32 weeks 4 days, estimated weight 1881.5 g Impression: Twin gestations as above
[2025-03-22 11:41] LABS: Collection Type, Urine Clean Catch
[2025-03-22 12:02] LABS: Bacteria,Urine Rare; Bilirubin,Urine Negative (Negative); Blood,Urine 1+ (Negative); Clarity,Urine Clear (Clear/Hazy); Color,Urine Yellow (Lt Yel-Yel); Glucose, Urine Negative (Negative); Ketones,Urine Negative (Negative); Leukocyte Esterase,Urine Negative (Negative); Nitrite,Urine Negative (Negative); PH,Urine 6.0 (5.0-7.0); Protein,Urine Negative (Neg - Trace); RBC,Urine 4 /hpf (0-3); Specific Gravity,Urine 1.012 (1.001-1.035); Squamous Epithelial Cell,Urine 9 /hpf (0-5); Urobilinogen,Urine Negative mg/dL (0.0-1.0); WBC,Urine 1 /hpf (0-5)
== END 2025-03-22 13:55 | disposition home or self-care (01) ==
PROVIDERS: Admitting Provider Obstetrics & Gynecology; Visit Provider Obstetrics & Gynecology
DX: O46.93 Antepartum hemorrhage, unspecified, third trimester (principal); Z3A.32 32 weeks gestation of pregnancy
CPT/HCPCS: 59025; 59899; 76805; 81001; 87077; 87086; 87186

== ENCOUNTER 2025-03-26 10:55 | Inpatient (IN) | payer MEDICAID, SELFPAY ==
[2025-03-26] VITALS (16 sets, daily range): BP systolic 84–135; BP diastolic 56–91; PULSE 74–115; RESP 13–98; TEMP 36.6–36.9; O2SAT 90–100; BMI 44.2
[2025-03-26] MEDS: Ampicillin Inj 2,000 MG in SODIUM CHLORIDE 0.9% (POP) 100 ML 200 MG IV (11:28)
[2025-03-26] MEDS: BETAMET ACET/BETAMET NA PH (Celestone) 6 MG/ML VIAL 12 MG IM (11:28)
--- NOTE | 2025-03-26 11:41 | PD.LDHP ---
Documentation for date of: 03/26/25 OB Labor/Induct. HPI History of Present Illness Chief complaint: Spontaneous rupture of membranes of twin A : 1 Para: 0 Term pregnancies: 0 pregnancies: 0 Living children: 0 History of Abortions: Spontaneous and Elective: 0 History of Vaginal deliveries: 0 History of sections: No History of : No ARIN: 05/20/25 Gestational Age (weeks): 32 Gestational Age (days): 1 History of present illness: 30-year-old 1 para 0 with twin gestation who came in to OB triage with spontaneous rupture of membranes, patient currently is with diamniotic dichorionic twins at 32 weeks and 1 day. Patient denies any vaginal bleeding and reports adequate movement x 2. She received care at the [facility]. Adequate care she was also referred to maternal- medicine Dr. Ribeiro, for level 2 ultrasound and twin surveillance. Past Medical History Surgical History SURGICAL: Negative Section Meds Home Medications and Allergies Home Medications ?Medication ?Instructions ?Recorded ?Confirmed ?Type folic acid 1 mg tablet 1 mg PO QDAY 09/29/24 03/22/25 History metformin 1,000 mg tablet 1,000 mg PO QDAY 09/29/24 03/22/25 History Allergies Allergy/AdvReac Type Severity Reaction Status Date / Time shrimp Allergy Verified 03/22/25 15:25 NKA* Allergy Uncoded 03/06/25 19:30 OB Exam Physical Exam Vital signs: Pulse BP Pulse Ox 107 H 135/91 H 90 L 03/26/25 11:15 03/26/25 11:15 03/26/25 11:19 Constitutional Constitutional: no acute distress Routine HEENT Exam Head: Present normocephalic and atraumatic Eye: Present EOMI and PERRL ENT: Present mucous membranes moist Routine Neck Exam Neck: Present supple and trachea midline Routine Cardiovascular Exam Cardiovascular: Present RRR Routine Abdominal Exam Abdominal: Present soft and normoactive bowel sounds Detailed Labor and Delivery Exam Dilation (cm): 3 Effacement (%): 100 Cervix position: anterior station: -2 Consistency: firm Presentation: Vertex Routine Extremities Exam Extremities: Present full ROM Routine Skin Exam Skin: Present intact, dry and warm Routine Neurological Exam Neurological: Present alert, oriented X3 and CN II-XII intact Routine Psychiatric Exam Psychiatric: Present normal affect and normal thought process OB Assessment & Plan Assessment and Plan (1) Twin gestation in third trimester: Status: Acute (2) Dichorionic diamniotic twin in third trimester: Status: Acute (3) Spontaneous rupture of membranes: Status: Acute Assessment and plan: Admit to inpatient status Rupture of membranes confirmed through gross pooling. Patient is having contractions every 3 minutes and is very uncomfortable with 3 cm dilated cervix with full effacement. Delivery might be eminent, twin A is vertex and twin B is transverse. I had a conversation with the patient about the risks of proceeding with vaginal delivery and specially if twin B changes orientation after delivery of twin A then she may still require a . After review of all risks benefits and alternatives patient finally elected to proceed with a primary . Betamethasone and ampicillin started. Patient scheduled for the operating room.
[2025-03-26 11:59] LABS: ROM Kit Exp Date# 01/18/28; ROM Kit Lot # 58104371; Swb Mxed in Solvent 1 min? Yes
[2025-03-26 12:00] LABS: ROM Swab Mixed By: SANCF1; Rupture of Fetal Membranes Positive (Negative)
[2025-03-26 12:04] LABS: Basophils # (Auto) 0.0 Thou/mm3 (0.0-0.2); Basophils % (Auto) 0 % (0-2.5); Eosinophils # (Auto) 0.1 Thou/mm3 (0.0-0.5); Eosinophils % (Auto) 1 % (0-10); Hematocrit 32.2 % (36.0-46.0); Hemoglobin 10.9 g/dL (12.0-16.0); Immature Granulocytes Auto 0.05 Thou/mm3 (0.00-0.00); Lymphocytes # (Auto) 2.2 Thou/mm3 (1.0-4.8); Lymphocytes % (Auto) 23 % (10-50); Mean Corpuscular HGB Conc 33.9 g/dl (31.0-37.0); Mean Corpuscular Hemoglobin 29.2 pg (25.0-35.0); Mean Corpuscular Volume 86 fL (80-100); Monocytes # (Auto) 0.7 Thou/mm3 (0.0-0.8); Monocytes % (Auto) 7 % (0-12); Neutrophils # (Auto) 6.5 Thou/mm3 (1.8-7.7); Neutrophils % (Auto) 69 % (37-80); Nucleated Red Blood Cell # 0.00 Thou/mm3 (0.00-0.00); Nucleated Red Blood Cell % 0 /100 WBC (0); Platelet Count 264 Thou/mm3 (140-440); RDW Standard Deviation 44.6 fL (36.4-46.3); Red Blood Count 3.73 Miln/mm3 (4.00-5.20); White Blood Count 9.5 Thou/mm3 (3.6-11.0)
[2025-03-26] MEDS: FAMOTIDINE INJ 10 MG/ML VIAL 2 ML 20 MG IV (12:09)
[2025-03-26] MEDS: ONDANSETRON INJ 2 MG/ML INJ 2 ML 4 MG IVP (12:09)
--- NOTE | 2025-03-26 13:14 | PD.GYNPROC ---
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 Identity was verified using two patient identifiers. The patient was placed in the supine position and spinal anesthesia was administered. The abdomen and perineum were prepped and draped in the usual sterile fashion. A Flower catheter was inserted for continuous bladder drainage. A surgical timeout was performed. A low transverse (Pfannenstiel) skin incision was made and carried down through the subcutaneous tissue to the rectus fascia. The fascia was incised transversely and dissected off the underlying rectus muscles superiorly and inferiorly. The rectus muscles were in the midline, and the peritoneum was entered bluntly. A low transverse uterine incision was made. Upon entry into the uterus, Twin A was encountered in a transverse lie, with one arm and one leg prolapsed into the incision. Internal version was performed, and Twin A was delivered in vertex presentation. The umbilical cord was clamped and divided, and the was handed to the team. The membranes of Twin B were then ruptured. Twin B was also noted to be in a transverse position with prolapse of the hand and leg into the incision. The fetus was delivered in breech presentation. The umbilical cord was double clamped and divided, and the was handed to the awaiting team. Both placentas were delivered spontaneously. The uterus was cleared of all clots and membranes. The uterine incision was closed in two layers using 1-0 Monocryl. The first layer was closed in a running locked fashion, and the second layer in a running imbricated fashion. Hemostasis was confirmed throughout the hysterotomy. There were no extensions or complications. The peritoneal cavity was irrigated and inspected. No active bleeding was noted. The rectus fascia was closed using 0 Vicryl in a running fashion. The subcutaneous tissue was approximated with 2-0 plain gut. The skin was closed using 4-0 Monocryl in a subcuticular fashion. A Dermabond Prineo dressing was applied. The patient was undraped and transferred to recovery in stable and awake condition. She tolerated the procedure well. All instrument, sponge, and lap counts were correct ?2. Specimen: none Estimated blood loss (ml): 750 Complications: none Surgical staff Operation Date: 03/26/25 12:15 <No data on this case meets the specified criteria> Diagnosis Discharge Diagnosis (1) Spontaneous rupture of membranes: Status: Acute (2) Dichorionic diamniotic twin in third trimester: Status: Acute (3) Gestational diabetes: Status: Acute (4) with history of infertility: Status: Acute Problem List Completed Was Problem List Reviewed/Reconciled?: Yes
[2025-03-26] MEDS: OXYTOCIN in NS 20 units 20 UNIT/1,000 ML BAG 125 UNIT IV ×2 (15:10→22:50)
[2025-03-26] MEDS: KETOROLAC INJ 30 MG/ML VIAL IVP (15:49)
--- NOTE | 2025-03-26 15:50 | PC.CC ---
1531: received call from DUONG Adames from NICU, requesting to print clinicals for twins transfer to [facility].
[2025-03-26 17:26] LABS: Amphetamine/Metham Scrn,Ur OB Negative (Negative); Benzoylecgonine Screen, Ur OB Negative (Negative); Opiate Screen,Urine OB Negative (Negative); THC Screen,Urine OB Negative (Negative)
[2025-03-26] MEDS: INSULIN HUM REGULAR 1 UNIT/0.01 ML (PER UNIT) SC (17:33)
[2025-03-26 17:51] LABS: Syphilis Nonreactive (Nonreactive)
[2025-03-26] MEDS: HYDROcodone/APAP 5/325 TABLET 2 TAB PO (20:15)
--- NOTE | 2025-03-26 21:17 | PC.NURSE ---
03/26/[address] @ [address] Ferguson & notified of ACHS of 230. Per Dr. give 5 units of regular insulin & recheck BG in 1 hr.
[2025-03-26] MEDS: INSULIN HUM REGULAR 1 UNIT/0.01 ML (PER UNIT) 5 UNIT SC (21:28)
[2025-03-27] VITALS: BP 116/74; PULSE 80; RESP 18; TEMP 36.6; O2SAT 96
[2025-03-27] MEDS: IBUPROFEN TAB 400 MG TABLET 800 MG PO ×3 (00:26→21:59)
[2025-03-27 04:00] VITALS: BP 116/75; PULSE 85; RESP 18; TEMP 36.6; O2SAT 98
[2025-03-27 05:48] LABS: Basophils # (Auto) 0.0 Thou/mm3 (0.0-0.2); Basophils % (Auto) 0 % (0-2.5); Eosinophils # (Auto) 0.0 Thou/mm3 (0.0-0.5); Eosinophils % (Auto) 0 % (0-10); Hematocrit 27.4 % (36.0-46.0); Hemoglobin 9.2 g/dL (12.0-16.0); Immature Granulocytes Auto 0.10 Thou/mm3 (0.00-0.00); Lymphocytes # (Auto) 2.2 Thou/mm3 (1.0-4.8); Lymphocytes % (Auto) 14 % (10-50); Mean Corpuscular HGB Conc 33.6 g/dl (31.0-37.0); Mean Corpuscular Hemoglobin 28.7 pg (25.0-35.0); Mean Corpuscular Volume 85 fL (80-100); Monocytes # (Auto) 1.2 Thou/mm3 (0.0-0.8); Monocytes % (Auto) 8 % (0-12); Neutrophils # (Auto) 12.5 Thou/mm3 (1.8-7.7); Neutrophils % (Auto) 78 % (37-80); Nucleated Red Blood Cell # 0.00 Thou/mm3 (0.00-0.00); Nucleated Red Blood Cell % 0 /100 WBC (0); Platelet Count 223 Thou/mm3 (140-440); RDW Standard Deviation 43.8 fL (36.4-46.3); Red Blood Count 3.21 Miln/mm3 (4.00-5.20); White Blood Count 16.1 Thou/mm3 (3.6-11.0)
[2025-03-27] MEDS: INSULIN DEGLUDEC 5 UNIT/0.05 ML (PER 5 UNITS) 10 UNIT SC (08:15)
[2025-03-27] MEDS: DOCUSATE SOD 100 MG CAPSULE PO (08:17)
[2025-03-27 08:20] VITALS: BP 112/77; PULSE 85; RESP 18; TEMP 36.9; O2SAT 99
[2025-03-27] MEDS: HYDROcodone/APAP 5/325 TABLET 2 TAB PO ×2 (08:24→16:00)
[2025-03-27] MEDS: SIMETHICONE 80 MG CHEW PO ×2 (08:29→16:04)
[2025-03-27] MEDS: Milk Of Magnesia Susp 30 ML UDC PO (08:29)
--- NOTE | 2025-03-27 09:33 | PD.LDPPPRG ---
Subjective Subjective Interval history: Patient doing well overall. Pain is fairly well controlled. She is ambulating no lightheadedness/dizziness. Voiding spontaneously since aguayo was removed, no issues. Tolerating regular diet- had a bit of nausea this morning, but it subsided while eating. Not yet passing gas. No fevers/chills, no CP/SOB. Babies are at [facility]. Exam Vital Signs Temp Pulse Resp BP Pulse Ox O2 Del Method 98.4 F 85 18 112/77 99 Room Air 03/27/25 08:20 03/27/25 08:20 03/27/25 08:20 03/27/25 08:20 03/27/25 08:20 03/27/25 08:20 Narrative Exam General: well developed, well nourished, no acute distress, conversant Cardiac: normal heart rate Lungs: breathing without distress Abdomen: soft, post-gravid, non-tender, no rebound or guarding, pfannenstiel incision covered by dry/clean/intact prineo bandage. Incision well reapproximated. No erythema, drainage or induration. Fundus firm at u-2cm. Extremities: no pain with palpation of calves, 1+ edema of BLE Objective Labs 03/27/25 05:25 Labs: Laboratory Results - last 24 hr 03/26/25 03/26/25 03/26/25 11:29 11:48 16:00 WBC 9.5 RBC 3.73 L Hgb 10.9 L Hct 32.2 L MCV 86 MCH 29.2 MCHC 33.9 RDW Std Deviation 44.6 Plt Count 264 Neut % (Auto) 69 Lymph % (Auto) 23 Churchill % (Auto) 7 Eos % (Auto) 1 Baso % (Auto) 0 Neut # (Auto) 6.5 Lymph # (Auto) 2.2 Churchill # (Auto) 0.7 Eos # (Auto) 0.1 Baso # (Auto) 0.0 Immature Gran # (Auto) 0.05 H Absolute Nucleated RBC 0.00 Immature Gran % 1 H Nucleated RBC % 0 Membrane Rupture Positive A Urine Opiates Screen Negative U Amphetamin/Meth Scrn Negative U Cocaine Metab Screen Negative U Marijuana (THC) Screen Negative Syphilis Serology Nonreactive Blood Type A Positive Antibody Screen NEGATIVE Blood Bank Wristband ID Yes 03/27/25 05:25 WBC 16.1 H D RBC 3.21 L Hgb 9.2 L Hct 27.4 L MCV 85 MCH 28.7 MCHC 33.6 RDW Std Deviation 43.8 Plt Count 223 D Neut % (Auto) 78 Lymph % (Auto) 14 Churchill % (Auto) 8 Eos % (Auto) 0 Baso % (Auto) 0 Neut # (Auto) 12.5 H Lymph # (Auto) 2.2 Churchill # (Auto) 1.2 H Eos # (Auto) 0.0 Baso # (Auto) 0.0 Immature Gran # (Auto) 0.10 H Absolute Nucleated RBC 0.00 Immature Gran % 1 H Nucleated RBC % 0 Membrane Rupture Urine Opiates Screen U Amphetamin/Meth Scrn U Cocaine Metab Screen U Marijuana (THC) Screen Syphilis Serology Blood Type Antibody Screen Blood Bank Wristband ID Assessment & Plan Problem List (1) delivery delivered: Status: Acute Assessment and plan: Lea is a 30yo [id number] s/p uncomplicated PLTCS after presenting with di-di twin having PPROM/early labor with transverse/transverse presentation, doing well on POD 1. Vitals wnl, benign exam. Hemodynamically stable with no evidence of infection. Appropriate change in H/H from 10.9 to 9.2. EBL 750ml. Accucheck 9/11 at 1730: 216, received 1u insulin. Accucheck 9 at 0720: 120, no SSI given. complicated by: -Di-di twin gestation -T2DM on metformin 500mg BID and lantus 10u qam Plan: -Continue routine /post-op care -Continue metformin 500mg PO BID with lantus 10u SQ Qam and SSI. Fingerstick glucose to be done QID: fasting and 1hr PP. -Diabetic diet -motrin 800mg PO Q8hr, norco 5/325mg PO Q6hr prn pain -Encourage ambulation and use of IS -Anticipate discharge home tomorrow if meeting all milestones (2) Malpresentation of fetus, delivered: Status: Acute (3) Spontaneous rupture of membranes: Status: Acute (4) Dichorionic diamniotic twin in third trimester: Status: Acute (5) Gestational diabetes: Status: Acute (6) with history of infertility: Status: Acute Time Spent With Patient Time: Total time spent is greater than 50% in coordination of care (as documented) at patient's floor/unit and/or counseling patient:
[2025-03-27 12:25] VITALS: BP 113/79; PULSE 106; RESP 18; TEMP 36.8; O2SAT 97
[2025-03-27] MEDS: INSULIN HUM REGULAR 1 UNIT/0.01 ML (PER UNIT) SC ×2 (12:41→18:24)
[2025-03-27 20:00] VITALS: BP 118/76; PULSE 90; RESP 16; TEMP 36.9; O2SAT 97
[2025-03-28] MEDS: SIMETHICONE 80 MG CHEW PO ×2 (03:09→11:11)
[2025-03-28] MEDS: HYDROcodone/APAP 5/325 TABLET 1 TAB PO ×2 (03:10→11:11)
[2025-03-28 03:43] VITALS: BP 118/75; PULSE 80; RESP 18; TEMP 36.6; O2SAT 97
[2025-03-28] MEDS: IBUPROFEN TAB 400 MG TABLET 800 MG PO (05:58)
[2025-03-28 08:00] VITALS: BP 107/67; PULSE 78; RESP 16; TEMP 36.4; O2SAT 98
--- NOTE | 2025-03-28 10:22 | ESDS_ITS ---
DS: Providers Provider Date of admission: 03/26/25 11:27 Primary care physician: Physician No Primary/Family Admitting Provider: Krish Ferguson MD Attending Provider on Admission: Cheyanne Wise MD Consults: 03/26/25 14:56 Referral Routine Comment: Attending Provider on DC: Cheyanne Wise MD Discharging Provider: Cheyanne Wise MD DS: Diagnosis Discharge Diagnosis (1) delivery delivered: Status: Acute (2) Malpresentation of fetus, delivered: Status: Acute (3) Insulin dependent diabetes mellitus: Status: Acute (4) Spontaneous rupture of membranes: Status: Acute (5) Dichorionic diamniotic twin in third trimester: Status: Acute Problem List Completed Was Problem List Reviewed/Reconciled?: Yes Summary/Hosp Course Brief History: Lea is a 30yo [id number] s/p uncomplicated PLTCS after presenting with di-di twin having PPROM/early labor with transverse/transverse presentation, doing well on POD 2. Vitals wnl, benign exam. Hemodynamically stable with no evidence of infection. Appropriate change in H/H from 10.9 to 9.2. EBL 750ml. She was receiving long-acting insulin with metformin post-/post-op. Once metformin was given at the appropriate dose she had been taking during (1000mg BID), her blood glucose levels improved. Fasting 98, post-breakfast 124. She has had an uncomplicated post-operative course, meeting all milestones and feels ready for discharge home. She is ambulating without lightheadedness, tolerating regular diet no n/v, spontaneously voiding without issue. She has no chest pain or shortness of breath. No fevers or chills. Pain well controlled. Peripartum Data Delivery Method: Low Transverse Procedures: Procedures Operation Date: 03/26/25 12:15 Actual Procedure Side Surgeon p in OB Not Applicable Krish Ferguson MD Status at Discharge Functional status at discharge: independent ambulation Overall status at discharge: patient is back to baseline Time Spent with Patient Time attestation: Total time spent providing and/or coordinating discharge services: Exam Vital Signs Temp Pulse Resp BP Pulse Ox O2 Del Method 97.6 F 78 16 107/67 98 Room Air 03/28/25 08:00 03/28/25 08:00 03/28/25 08:00 03/28/25 08:00 03/28/25 08:00 03/28/25 08:00 Narrative Exam General: well developed, well nourished, no acute distress, conversant Cardiac: normal heart rate Lungs: breathing without distress Abdomen: soft, post-gravid, obese, non-tender, no rebound or guarding, pfannenstiel incision covered by dry/clean/intact prineo bandage. Incision well reapproximated. No erythema, drainage or induration. Fundus firm at u-2cm. Extremities: no pain with palpation of calves, trace edema of BLE Discharge Plan Plan Patient Disposition: HOME (Self Care) Patient condition on transfer: Stable Prescriptions/Referrals Prescriptions/Med Rec: New hydrocodone-acetaminophen 5-325 mg Tablet 1 tab PO Q6H MDD 4 tablets PRN (Reason: Patient rated pain 7 to 8) 7 Days Qty: 10 0RF docusate sodium 100 mg Capsule 100 mg PO BID 10 Days Qty: 20 0RF ibuprofen 800 mg tablet 800 mg PO Q8HR PRN (Reason: Pain Scale 4-6 (Moderate) 10 Days Qty: 30 0RF ferrous sulfate 325 mg (65 mg iron) tablet 325 mg PO QDAY Qty: 30 0RF Continued folic acid 1 mg tablet 1 mg PO QDAY Changed metformin 1,000 mg tablet 1,000 mg PO BID 30 Days Qty: 60 0RF Discontinued insulin glargine [Basaglar KwikPen U-100 Insulin] 100 unit/mL (3 mL) insulin pen 20 unit subcut QPM 30 Days Qty: 6 1RF No Action (DME) pen needle, diabetic 29 gauge x 1/2 needle See Rx Instructions .ROUTE .MEDSUPPLY Qty: 50 2RF Rx Instructions: As directed, once a day Referrals: No Primary/Family,Physician [Primary Care Provider] Patient/Caregiver Discharge Instructions Discharge Activity: activity as tolerated and other Other Discharge Activity Instructions:: vaginal rest and no heavy lifting more than 10 pounds for 6 weeks. keep incision clean and dry, do not submerge. no driving while taking narcotic. Other Discharge Diet Instructions: diabetic diet Education Materials: C Section Dc Print Language: Mongolian Activity Restrictions/Additional Instructions: follow up with your obgyn in 1 to 2 weeks for incision check, call clinic to schedule appointment Stand Alone Forms: Chloe Sharif Info., Patient Portal Info Letter Discharge Order Discharge Orders: Discharge (Routine); Ordered 03/28/25 Ordered By: Cheyanne Wise Planned Discharge Date 03/28/25
[2025-03-28] MEDS: DOCUSATE SOD 100 MG CAPSULE PO (11:11)
[2025-03-28] MEDS: Milk Of Magnesia Susp 30 ML UDC PO (11:17)
== END 2025-03-28 11:46 | disposition home or self-care (01) | DRG 540 ==
LOC: S4SX 12:22 → S4NX 12:24
PROVIDERS: Admitting Provider Obstetrics & Gynecology; Visit Provider Obstetrics & Gynecology
PROC: 10D00Z1 Extraction of Products of Conception, Low, Open Approach (ICD-10-PCS; CPT 59514; principal; 2025-03-26 12:00)
DX: O42.013 Preterm premature rupture of membranes, onset of labor within 24 hours of rupture, third trimester (principal); O60.14X0 Preterm labor third trimester with preterm delivery third trimester, not applicable or unspecified; O24.424 Gestational diabetes mellitus in childbirth, insulin controlled; O30.043 Twin pregnancy, dichorionic/diamniotic, third trimester; O32.2XX1 Maternal care for transverse and oblique lie, fetus 1; O32.2XX2 Maternal care for transverse and oblique lie, fetus 2; Z3A.32 32 weeks gestation of pregnancy; Z37.2 Twins, both liveborn
CPT/HCPCS: 36415; 59409; 80307; 84112; 85025; 86780; 86850; 86900; 86901; 94762; A4217; A4314; A4649; J0290; J0702; J1815; J1885; J2274; J2371; J2405; J2590; J3010; J3490; A9270; J2270

== ENCOUNTER 2025-05-05 08:45 | Outpatient (AMB) | payer MEDICAID, SELFPAY ==
[2025-05-05 08:55] VITALS: BP 119/76; PULSE 82; RESP 16; TEMP 36.6; O2SAT 97; BMI 39.7
--- NOTE | 2025-05-05 08:55 | AMBOBPPN_ITS ---
Vital Signs 05/05/25 08:55 Height 1.6 m Height Method Stated Weight 101.775 kg Weight Measurement Method Standing Scale BMI 39.7 BP 119/76 Blood Pressure Source Automatic Cuff Blood Pressure Location Left Upper Arm Position Sitting Respiration 16 Pulse 82 Pulse Source Monitor Temp 97.8 F Temp Source Oral Pulse Oximetry (%) 97 Oxygen Delivery Method Room Air Allergies/Home Meds Allergies & Medications Allergies shrimp Allergy (Verified 06/08/25 10:20) Hives NKA* Allergy (Uncoded 06/08/25 10:20) Medication Reconciliation folic acid 1 mg tablet 1 mg PO QDAY 09/29/24 [History Confirmed 05/05/25] pen needle, diabetic 29 gauge x 1/2 #50 ea 01/27/25 [Rx Confirmed 05/05/25] ferrous sulfate 325 mg (65 mg iron) tablet 325 mg PO QDAY #30 tabs 03/28/25 [Rx Confirmed 05/05/25] metformin 1,000 mg tablet 1,000 mg PO BID 30 days #60 tabs 03/28/25 [Rx Confirmed 05/05/25] drospiren-e.estrad-l.mefol 3 mg-0.02 mg-0.451 mg(24)/0.451 mg(4)tablet (Beyaz (28)) 1 tab PO QDAY 84 days #84 tabs 05/05/25 [Rx] sertraline 100 mg tablet 100 mg PO QDAY 30 days #30 tabs 05/12/25 [Rx] Intake Visit Data Collection New Patient or Established: Established Patient (seen at [facility] within 3 years) Reason for Visit:: Seen by Clinical Staff ONLY (RN/MA): No Detention Sergeant Required: No Do You Feel Safe at Home: Yes Authorities Contacted: N/A PCP or OBGYN visit in last 3 months: Yes Hx Now: No Are you currently on any form of Control: No Pain Present Currently: No Pain Scale Used: Adams-Galvin/Numerical Pain scale:: 0 Smoking Status Smoking Status: Never smoker Immunizations Flu Vaccine in the Last 12 Months: No Flu Vaccine Exclusion Criteria: No 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 Criteria 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 Medical History Past Medical History: No Hx Neurological Disorders, No Hx Hypothyroidism, No Hx Hyperthyroidism, No Hx Breast Cancer, No Hx Cardiac Disorders, Yes Hx Hy pertension, Yes Hx Cancer, No Hx Blood Disorders, No Hx Anemia, No Hx Gastrointestinal Disorders, No Hx Renal Disease, No Hx Diabetes Mellitus Type 1, Yes Hx Diabetes Mellitus Type 2, No Hx Hysterectomy and No Hx Polycystic Ovarian Syndrome Questionnaires Covid-19 Vaccine Questionnaire Has patient been vacinated for Covid-19 Have you been vacinated for Covid-19: Yes Social History Living Situation History Lives With: Family Housing: Apartment Tobacco History Smoking Status: Never smoker Second Hand Smoke Exposure: No Alcohol History Alcohol Intake: Never Substance Use History Substance Use: NONE Domestic Abuse History Do You Feel Safe at Home: Yes EPDS - PP Depression Screening [place] Pospartum Depression Screen I have been able to laugh and see the funny side of things: (2) Definitely not so much now I have looked forward with enjoyment to things: (1) Rather less than I used to I have blamed myself unnecessarily when things went wrong: (0) No, never I have been anxious or worried for no good reason: (2) Yes, sometimes I have felt scared or panicky for no very good reason: (0) No, not at all Things have been getting on top of me: (0) No, I have been coping as well as ever I have been so unhappy that I have had difficulty sleeping: (0) No, not at all I have felt sad or miserable: (0) No, not at all I have been so unhappy that I have been crying: (1) Only occasionally The thought of harming myself has occurred to me: (0) Never EPDS completed yes HPI Interval History: Lea Khalil is a patient presenting for her 6-week follow-up visit after delivering twins via section on March 26, 2025. She had a twin complicated by gestational diabetes mellitus that was managed with metformin and insulin during . The patient reports that her twins were born prematurely and required NICU stay, coming home on April 16 after staying approximately 3 weeks. She is currently with a combination approach. She continues taking metformin for diabetes management, having discontinued insulin . The patient is experiencing symptoms of depression, describing feeling sad and angry. She reports that she tends to blow up all the time when angry. She denies headaches or stomach pain when specifically asked about preeclampsia symptoms. The patient is seeking medical leave extension and requested treatment for her depression symptoms. She has not yet decided on control options and requested more time to consider her choices. She has an obstetric history of G1 T0 L2. Her most recent delivery was a twin delivered via section on March 26, 2025 at approximately 34 weeks gestation, complicated by gestational diabetes mellitus. The patient lives with her twins who were recently discharged home on April 16 after approximately 3 weeks in hospital. She is currently on maternity leave and works at [employer] with over one year of employment. 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 Was or delivery considered high risk: Yes Delivery type: vaginal Exam General General Appearance: alert, in no apparent distress and healthy appearing Head Head exam: atraumatic Neck Neck exam: Present normal inspection and trachea midline Chest Chest inspection: Present normal inspection and symmetric chest wall rise External exam: Present normal external exam; Absent tenderness Neuro Neurological exam: Present oriented X3 Psych Psychiatric exam: Present normal affect and normal mood Office Procedures OBC Clinic LOC & Office Proc's Nursing/Assessment Patient Status: Established Patient OB Clinic Nursing Assessment: Medication Reconciliation, Update PMH in EMR and Vital Signs OB Clinic Coordination of Care: Complex Care and Chronic Disease 1-5, Consent,records obtained, informed consent, Education Simp Pt/Fam, Lab and Imaging orders, Results/Orders obtained and Staff clarify orders Established Patient Charge Established Patient Point Assignment: 105 Established Patient Point Charge: EP Level 3 (80-115) Assessment & Plan Diagnosis / Problem List (1) depression: Status: Acute (2) Encounter for initial prescription of contraceptive pills: Status: Acute Plan Depression: - Patient reports symptoms of sadness and anger, describing frequent episodes of blowing up. - Symptoms consistent with depression in setting of recent twin delivery and sleep deprivation from caring for newborns. - Babies were hospitalized for approximately 3 weeks before coming home on April 16. Plan: - Start antidepressant medication. - Medication takes minimum 2 weeks to take effect, patient counseled not to give up on treatment. - If first medication ineffective, second medication can be added. - Lifestyle modifications recommended: ? Obtain 6 hours of sleep (can be broken up during day and night, nap when babies nap). ? Expose to plumber gasfitter sunlight in first 2-3 hours of morning when sun is not high up to trigger eye receptors that help with depression. ? Take walks as able. - Follow-up in 1 month to assess medication response. Visit After Delivery: - Patient is 6 weeks following delivery of twins on 03/26/2025. - No symptoms of preeclampsia (no headaches or abdominal pain reported). - Currently with combination feeding. Plan: - Routine care completed. - control discussion deferred per patient preference. History of Gestational Diabetes Mellitus: - Patient had gestational diabetes mellitus during twin , previously managed with metformin and insulin. - Currently taking only metformin, which was her pre- medication. Plan: - Continue metformin. - Order A1c test. Medical Leave Extension Request: - Patient requesting extension of medical leave beyond current authorization which expires July 12. - Patient is eligible for up to 6 months total leave from delivery date. - If employed at [employer] for more than one year, disability benefits can extend up to one year. Plan: - Provide medical certification letter for leave extension. - Future extensions will be one month at a time. - Patient to call in second week of June for next extension letter. - Patient to submit letter to employer who will likely provide forms for physician completion. - Medical certification required for continued leave.
== END 2025-05-05 09:09 | disposition home or self-care (01) ==
LOC: HODSOBC 08:45
PROVIDERS: Supervising Provider Obstetrics & Gynecology; Visit Provider Obstetrics & Gynecology
DX: Z39.2 Encounter for routine postpartum follow-up (principal); F53.0 Postpartum depression; Z30.011 Encounter for initial prescription of contraceptive pills; O24.435 Gestational diabetes mellitus in puerperium, controlled by oral hypoglycemic drugs; Z91.013 Allergy to seafood
CPT/HCPCS: 99213; G0463

== ENCOUNTER 2025-06-08 09:59 | Outpatient (AMB) | payer MEDICAID, SELFPAY ==
[2025-06-08 10:19] VITALS: BP 114/73; PULSE 88; RESP 18; TEMP 36.4; O2SAT 97; BMI 39.6
--- NOTE | 2025-06-08 10:19 | AMB.OBPP ---
Vital Signs 06/08/25 10:19 Height 1.6 m Height Method Stated Weight 101.661 kg Weight Measurement Method Standing Scale BMI 39.6 BP 114/73 Blood Pressure Source Automatic Cuff Blood Pressure Location Right Upper Arm Position Sitting Respiration 18 Pulse 88 Pulse Source Monitor Temp 97.6 F Temp Source Temporal Artery Scan Pulse Oximetry (%) 97 Oxygen Delivery Method Room Air Allergies/Home Meds Allergies & Medications Allergies shrimp Allergy (Verified 06/08/25 10:20) Hives NKA* Allergy (Uncoded 06/08/25 10:20) Intake Visit Data Collection New Patient or Established: Established Patient (seen at [facility] within 3 years) Reason for Visit:: Seen by Clinical Staff ONLY (RN/MA): No Correctional Substance Abuse Counselor Required: No Do You Feel Safe at Home: Yes Authorities Contacted: N/A PCP or OBGYN visit in last 3 months: Yes Date of Last PCP or OBGYN visit: 05/05/25 Hx Now: No Are you currently on any form of Control: Yes Last menstrual period: 05/28/25 Pain Present Currently: No Pain Scale Used: Adams-Galvin/Numerical Pain scale:: 0 Smoking Status Smoking Status: Never smoker Immunizations Flu Vaccine in the Last 12 Months: No Flu Vaccine Exclusion Criteria: No 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: Past Medical History Past Medical History: No Hx Neurological Disorders, No Hx Hypothyroidism, No Hx Hyperthyroidism, No Hx Breast Cancer, No Hx Cardiac Disorders, Yes Hx Hypertension, Yes Hx Cancer, No Hx Blood Disorders, No Hx Anemia, No Hx Gastrointestinal Disorders, No Hx Renal Disease, No Hx Diabetes Mellitus Type 1, Yes Hx Diabetes Mellitus Type 2, No Hx Hysterectomy and No Hx Polycystic Ovarian Syndrome Questionnaires Covid-19 Vaccine Questionnaire Has patient been vacinated for Covid-19 Have you been vacinated for Covid-19: No Social History Living Situation History Marital Status: Life Partner Lives With: Family Housing: Apartment Tobacco History Smoking Status: Never smoker Second Hand Smoke Exposure: No Alcohol History Alcohol Intake: Never Substance Use History Substance Use: NONE Domestic Abuse History Do You Feel Safe at Home: Yes EPDS - PP Depression Screening [place] Pospartum Depression Screen I have been able to laugh and see the funny side of things: (1) Not quite so much now I have looked forward with enjoyment to things: (2) Definitely less than I used to I have blamed myself unnecessarily when things went wrong: (0) No, never I have been anxious or worried for no good reason: (2) Yes, sometimes I have felt scared or panicky for no very good reason: (2) Yes, sometimes Things have been getting on top of me: (2) Yes, sometimes I haven't been coping as well as usual I have been so unhappy that I have had difficulty sleeping: (0) No, not at all I have felt sad or miserable: (2) Yes, quite often I have been so unhappy that I have been crying: (1) Only occasionally The thought of harming myself has occurred to me: (0) Never Total Score: EPDS Score: Referral is indicated for score of 9 or more, suicidal, or if provider believes patient is depressed regardless of score.: 12 EPDS completed yes HPI Interval History: Lea Khalil presents for a follow-up visit approximately 2 months and 2 weeks after twin delivery on March 26. She is currently both babies and reports that everything is healing well and she is doing good overall. She has started taking control pills, which are working well without any issues. The patient is seeking an extension of her disability leave as she does not want to return to work at this time, with her current disability scheduled to end on July 14. She expresses that she does not think she will be going back to her job and would like to maximize her disability benefits up to the 6-month limit. She has a history of recent twin delivery on March 26, 2025. The patient is currently and has twin infants at home. She is currently not working and planning to extend maternity leave through the maximum 6-month period. The patient has been taking control pills, which are working well without any issues. 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 Exam General General Appearance: alert, in no apparent distress and healthy appearing Head Head exam: atraumatic Neck Neck exam: Present normal inspection and trachea midline Chest Chest inspection: Present normal inspection and symmetric chest wall rise External exam: Present normal external exam; Absent tenderness Neuro Neurological exam: Present oriented X3 Psych Psychiatric exam: Present normal affect and normal mood Office Procedures OBC Clinic LOC & Office Proc's Nursing/Assessment Patient Status: Established Patient OB Clinic Nursing Assessment: Medication Reconciliation, Update PMH in EMR and Vital Signs OB Clinic Coordination of Care: Complex Care and Chronic Disease 1-5, Education Complex Pt/Fam, Consent,records obtained, informed consent, Lab and Imaging orders, Results/Orders obtained and Staff clarify orders Established Patient Charge Established Patient Point Assignment: 110 Established Patient Point Charge: EP Level 3 (80-115) Antepartum Initial or Follow-up Antepartum Follow up Visit: Yes Assessment & Plan Diagnosis / Problem List (1) depression: Status: Acute (2) delivery delivered: Status: Acute Plan Disability Extension Request: - Patient delivered twins on 03/26 and is currently approximately 10-11 weeks . - Requesting extension of current disability which expires July 14. - Desires to maximize disability benefits up to 6-month limit through September. - Physical examination indicates complete healing of delivery-related issues. Plan: - Cannot process disability extension at this time as it is too early. - Extensions must be done within 7 days of current disability end date of July 14. - Patient to call office after July 04- to request disability extension. - Will provide both work letter and disability paperwork after July 04. - Can extend disability up to maximum 6 months through September as requested. - Patient provided DI number for future reference with [facility]. - No follow-up appointment scheduled; patient to call when ready for work clearance. Contraception Management: - Patient has initiated control pills . - Reports no issues with current contraceptive method. Plan: - Continue current control pills as tolerated. Status: - Patient is no longer both twins. - Acknowledged as common and acceptable given challenges of twins. Plan: - No intervention needed for discontinued .
== END 2025-06-08 10:35 | disposition home or self-care (01) ==
LOC: HODSOBC 09:59
PROVIDERS: Supervising Provider Obstetrics & Gynecology; Visit Provider Obstetrics & Gynecology
DX: Z39.2 Encounter for routine postpartum follow-up (principal); O99.345 Other mental disorders complicating the puerperium; F53.0 Postpartum depression; Z79.3 Long term (current) use of hormonal contraceptives; Z91.013 Allergy to seafood
CPT/HCPCS: 99213; Z1034; G0463